=== PATIENT | male | born 1935 | race Caucasian/White ===

== ENCOUNTER → 2018-02-04 | Outpatient (CLI) | payer MEDICARE | LOC: CARD 10:04 | PROVIDERS: ATTEND Internal Medicine Interventional Cardiology | DX: I25.10 Atherosclerotic heart disease of native coronary artery without angina pectoris (principal); J44.9 Chronic obstructive pulmonary disease, unspecified; I10 Essential (primary) hypertension; E11.9 Type 2 diabetes mellitus without complications; G47.33 Obstructive sleep apnea (adult) (pediatric); I49.5 Sick sinus syndrome; Z95.0 Presence of cardiac pacemaker | CPT/HCPCS: 93306 ==

== ENCOUNTER → 2018-02-15 | Outpatient (CLI) | payer MEDICARE ==
[~2018-02-15] MED LIST: RT-ALBUTEROL SULF 2.5 MG/3 ML PRE-MIX VIAL INH ONE; RT-ALBUTEROL SULF 2.5 MG/3 ML PRE-MIX VIAL ONE
== END ==
LOC: EDUNIT# 02-08 16:45 → RT 14:03
PROVIDERS: ATTEND Internal Medicine Interventional Cardiology
DX: R06.02 Shortness of breath (principal)
CPT/HCPCS: 94060; 94726; 94729

== ENCOUNTER → 2018-04-28 | Outpatient (CLI) | payer MEDICARE ==
--- NOTE | 2018-04-28 14:47 | Diagnostic Imaging Report ---
PROCEDURE: CT chest without contrast. TECHNIQUE: Multiple contiguous axial images were obtained through the chest without the use of intravenous contrast. INDICATION: Oxygen dependency x1 month. Shortness of air for six months. COMPARISON: None. FINDINGS: There is no significant mediastinal, axillary and/or hilar lymphadenopathy. Heart size is normal. There is presence of dense areas of coronary artery calcification. Left-sided dual-chamber pacemaker is present. No significant pericardial effusion. Small hiatal hernia. The lung wilkerson are clear of infiltrate. 6 mm nodule posterolaterally in the right upper lobe is present. Margins do appear to be slightly irregular with suggestion of spiculation. Minimal linear density to slightly thickened area of the pleura posteriorly and laterally. No significant effusion. Cholecystectomy clips. Dense calcification of visualized portions of the proximal abdominal aorta. There is rather diffusely dense heterogeneous appearance about the visualized osseous structures. This is most noticeable throughout the vertebral bodies. Scattered areas of Schmorl's nodes deformities are present. There is more focal irregularity at the L1-L2 disc space and adjacent endplates. IMPRESSION: 1. Small nodule in the right upper lobe. While this is too small to definitively characterize, some features do raise concern for potential for primary lung neoplasm. 2. Diffuse increased density throughout the visualized osseous structures. This could be owing to chronic pulmonary disease. Blastic sclerotic metastasis would be difficult to exclude. Additionally, there is slightly more focal destructive change about the L1-L2 level, could be posttraumatic and chronic in nature. While considered less likely, this can also be seen with surgical changes as discitis/osteomyelitis. Dictated by: Dictated on workstation # [id number]
== END ==
LOC: RAD 11:37
PROVIDERS: ATTEND Nurse Practitioner Family
DX: J98.4 Other disorders of lung (principal); J44.9 Chronic obstructive pulmonary disease, unspecified; R91.1 Solitary pulmonary nodule; Z95.0 Presence of cardiac pacemaker
CPT/HCPCS: 71250

== ENCOUNTER 2018-04-29 20:00 | Outpatient (CLI) | payer MEDICARE | END 2018-04-30 06:09 | disposition home or self-care (01) | LOC: SLEEP 20:00 | PROVIDERS: ATTEND Nurse Practitioner Family | DX: G47.33 Obstructive sleep apnea (adult) (pediatric) (principal) | CPT/HCPCS: 95811 ==

== ENCOUNTER 2018-07-23 21:00 | Outpatient (CLI) | payer MEDICARE | END 2018-07-24 07:09 | disposition home or self-care (01) | LOC: SLEEP 21:00 | PROVIDERS: ATTEND Internal Medicine Critical Care Medicine | DX: G47.33 Obstructive sleep apnea (adult) (pediatric) (principal); G47.10 Hypersomnia, unspecified | CPT/HCPCS: 95811 ==

== ENCOUNTER → 2018-09-16 | Outpatient (CLI) | payer MEDICARE ==
[~2018-09-16] MED LIST changes: +CATHETER FLUSH 10 ML SYR IV PRN; +REGADENOSON 0.4 MG/5 ML SYR (LEXISCAN) IV ONE; -RT-ALBUTEROL SULF 2.5 MG/3 ML PRE-MIX VIAL INH ONE; -RT-ALBUTEROL SULF 2.5 MG/3 ML PRE-MIX VIAL ONE
[2018-09-16 09:01] VITALS: BP 160/68
[2018-09-16 09:13] VITALS: BP 142/61
== END ==
LOC: CARD 07:43
PROVIDERS: ATTEND Internal Medicine Interventional Cardiology
DX: I25.10 Atherosclerotic heart disease of native coronary artery without angina pectoris (principal); R06.00 Dyspnea, unspecified; R53.83 Other fatigue; I49.5 Sick sinus syndrome; J44.9 Chronic obstructive pulmonary disease, unspecified; E11.9 Type 2 diabetes mellitus without complications; I77.9 Disorder of arteries and arterioles, unspecified; I10 Essential (primary) hypertension; Z95.0 Presence of cardiac pacemaker; I07.1 Rheumatic tricuspid insufficiency
CPT/HCPCS: 78452; 93017; 93306

== ENCOUNTER 2018-09-30 10:48 | Day surgery (SDC) | payer MEDICARE ==
[2018-09-30] VITALS (10 sets, daily range): BP systolic 120–181; BP diastolic 63–77
[~2018-09-30] VITALS: Ht 182.9 cm; Wt 90.7 kg
--- OUTSIDE RECORDS SUMMARY | 2018-09-30 10:51 | XMS REPORT | CCD ---
Author Author HILARY PADILLA Organization Unknown Address [address] [place], [place] [address] Care Team Providers Care Drain Tile Machine Operator Name Role Phone HANDSHY ERTONY MD Attphys HANDSHY ER, TONY CASTILLO Prisurg Vital Signs Unknown or Not Available. Allergies Allergy Code Allergy Type Reaction Status MORPHINE 7052 Drug allergy HALLUCINATIONS Active Procedures Procedure Code Procedure Type Date CT HEAD W/O CONTRAST 407718255 SNOMED CT 09/02/2015 CT MAXILLOFACIAL W/O CONTRAST 004522291 SNOMED CT 2015 COMPREHENSIVE METABOLIC PANEL 390218501 SNOMED CT 2015 CBC W/ AUTO DIFF (RFLX MAN DIFF IF IND) 0869434 SNOMED CT 09/02/2015 ^CBC W/AUTO DIFF 2080387 SNOMED CT 09/02/2015 History of Immunizations Unknown or Not Available. Problems Problem Code Start Date Resolved Date Status Primary osteoarthritis of left knee 034095121 Active Post op pain 572873747 02/07/2015 Active Status post knee replacement [id number] 02/07/2015 Active Results COMPREHENSIVE METABOLIC PANEL - Collect Date/Time: 09/02/2015 10:45 Test Name Code Test Result Test Units Test Ref Range GLUCOSE 2345-7 124 MG/DL L=70 H=100 SODIUM 2951-2 135 MEQ/L L=135 H=148 POTASSIUM 2823-3 4.5 MEQ/L L=3.5 H=5.3 CHLORIDE 2075-0 101 MEQ/L L=96 H=110 CO2 2028-9 27 MEQ/L L=22 H=29 BUN 3094-0 22 MG/DL L=8 H=22 CREATININE 2160-0 1.0 MG/DL L=0.6 H=1.6 SGOT/AST 1920-8 24 IU/L L=10 H=40 SGPT/ALT 1742-6 25 IU/L L=8 H=54 ALK PHOS 6768-6 82 IU/L L=35 H=115 TOTAL PROTEIN 2885-2 6.5 G/DL L=5.5 H=8.5 ALBUMIN 1751-7 4.1 G/DL L=3.1 H=5.4 TOTAL BILI 1975-2 0.6 MG/DL L=0.0 H=1.5 CALCIUM 03167-1 9.6 MG/DL L=8.2 H=10.6 AGE 80 yrs GFR NonAA 72 GFR AA 87 eGFR >60 N/A eGFR AA* >60 N/A CBC W/ AUTO DIFF (RFLX MAN DIFF IF IND) - Collect Date/Time: 09/02/2015 10:45 Test Name Code Test Result Test Units Test Ref Range WBC 46361-6 6.6 TH/CMM L=4.5 H=10.8 RBC 789-8 4.70 ML/CMM L=4.70 H=6.10 HGB 718-7 14.2 G/DL L=14.0 H=18.0 HCT 4544-3 42.7 % L=42.0 H=52.0 MCV 91 FL L=81 H=99 MCH 30.2 PG L=27.0 H=33.0 MCHC 33.3 G/DL L=31.0 H=36.0 RDW SD 46 FL L=36 H=50 RDW CV 13.9 % L=0.0 H=14.8 MPV 9.4 FL L=9.3 H=12.5 PLT 777-3 186 TH/CMM L=130 H=440 NRBC# 0.00 TH/CMM L=0.00 H=0.00 NRBC% 0.0 /100WBC L=0.0 H=2.0 %NEUT 68.2 % %LYMP 17.9 % %MONO 10.7 % %EOS 2.9 % %BASO 0.3 % #NEUT 4.52 TH/CMM L=2.10 H=8.20 #LYMP 1.19 TH/CMM L=0.90 H=5.20 #MONO 0.71 TH/CMM L=0.16 H=1.00 #EOS 0.19 TH/CMM L=0.00 H=0.80 #BASO 0.02 TH/CMM L=0.00 H=0.20 MANUAL DIFF NOT IND N/A PT/PTT - Collect Date/Time: 09/02/2015 10:45 Test Name Code Test Result Test Units Test Ref Range PROTIME 25118-0 11.0 SEC L=9.9 H=11.9 INR 1.0 PTT 3173-2 27.0 SEC L=22.2 H=37.2 Active Medications Medication Code Dose Units Frequency Route Modification Start Date/Time Augmentin 500MG-125MG Oral Tablet 44769732026 1 TABLET EVERY 12 HOURS BY MOUTH 02/12/2015 15:10 Prescription Detail 1 TABLET BY MOUTH EVERY 12 HOURS x 7 days Acetaminophen-HYDROcodone Bitartrate 10MG-325MG Oral Tablet 296428 1/2 - 1 TABLET NEEDED EVERY 4 HR BY MOUTH FOR PAIN 02/08/2015 18:41 Prescription Detail 1/2 - 1 TABLET BY MOUTH NEEDED EVERY 4 HR FOR PAIN Cozaar 50MG Oral Tablet 131889 50 MILLIGRAMS DAILY BY MOUTH 02/08/2015 18:41 Prescription Detail 50 MILLIGRAMS BY MOUTH DAILY Thera-M Enhanced 90MG-0.03MG-0.15MG-4 Oral Tablet 271442 1 TABLET DAILY BY MOUTH 02/08/2015 18:41 Prescription Detail 1 TABLET BY MOUTH DAILY Aspirin 325MG Oral Tablet 159713 325 MILLIGRAMS TWO TIMES A DAY ORAL 02/08/2015 18:40 Prescription Detail 325 MILLIGRAMS ORAL TWO TIMES A DAY Atorvastatin Calcium 80MG Oral Tablet 972925 80 MILLIGRAMS DAILY ORAL 02/08/2015 18:40 Prescription Detail 80 MILLIGRAMS ORAL DAILY Clopidogrel 75MG Oral Tablet 577341 75 MILLIGRAMS DAILY ORAL 02/08/2015 18:40 Prescription Detail 75 MILLIGRAMS ORAL DAILY Furosemide 40MG Oral Tablet 865679 40 MILLIGRAMS NEEDED ORAL 02/08/2015 18:40 Prescription Detail 40 MILLIGRAMS ORAL NEEDED HumaLOG 100U/1ML Subcutaneous Suspension 7747520 10 UNIT THREE TIMES A DAY SUBCUTANEOUS 02/08/2015 18:40 Prescription Detail 10 UNIT SUBCUTANEOUS THREE TIMES A DAY Lantus 100U/1ML Subcutaneous Solution 715840 30 UNIT BEFORE BEDTIME SUBCUTANEOUS 02/08/2015 18:40 Prescription Detail 30 UNIT SUBCUTANEOUS BEFORE BEDTIME Levothyroxine 50MCG Oral Tablet 673795 1 TABLET DAILY BY MOUTH 02/08/2015 18:40 Prescription Detail 1 TABLET BY MOUTH DAILY Metoprolol Tartrate 25MG Oral Tablet 604264 25 MILLIGRAMS TWO TIMES A DAY ORAL 02/08/2015 18:40 Prescription Detail 25 MILLIGRAMS ORAL TWO TIMES A DAY NIFEdipine 60MG Oral Tablet, Extended Release 062880 60 MILLIGRAMS DAILY ORAL 02/08/2015 18:40 Prescription Detail 60 MILLIGRAMS ORAL DAILY Potassium Chloride 20MEQ Oral Tablet, Extended Release 669648 20 MEQ NEEDED ORAL 02/08/2015 18:40 Prescription Detail 20 MEQ ORAL NEEDED Tamsulosin HCl 0.4MG Oral Capsule 467787 0.4 MILLIGRAMS DAILY ORAL 02/08/2015 18:40 Prescription Detail 0.4 MILLIGRAMS ORAL DAILY Medications Administered During Visit Unknown or Not Available. Encounters Encounter Diagnosis Diagnosis Code Start Date Fracture of nasal bones, initial encounter for closed fracture [id number] 09/02/2015 Social History Smoking Status Code Start Date End Date Never smoker [id number] Patient Decision Aids Unknown or Not Available. Discharge Instructions You were admitted to [facility] on 09/02/2015 10:09 with a principal diagnosis of Fracture of nasal bones, initial encounter for closed fracture You had the following tests done: CBC W/ AUTO DIFF (RFLX MAN DIFF IF IND) COMPREHENSIVE METABOLIC PANEL PT/PTT You were discharged from [facility] on 09/02/2015 12:48 Should you have any questions prior to discharge, please contact a member of your healthcare team. If you have left the hospital and have any questions, please contact your primary care physician. Chief Complaint and Reason For Visit Chief Complaint Date of Onset NOSE BLOOD Function Status Unknown or Not Available. Plan of Care Unknown or Not Available. Referral/Transition of Care Unknown or Not Available.
--- OUTSIDE RECORDS SUMMARY | 2018-09-30 10:51 | XMS REPORT ---
Author Author [facility] Medical Staff Organization [facility] Address [address] [place], [place] [address] Phone [phone] Summary purpose CCDA Sent to [facility] Chief Complaint and Reason for Visit No authorized Reason for Visit (Admitting Diagnosis) is available for this visit. Problem list No authorized problems tracked for continuity of care are available for this visit. Encounters No authorized problems tracked for encounter diagnoses are available for this visit. Medications No medications recorded for this patient visit Allergies, adverse reactions, alerts No allergy information is available for this patient. Immunizations No immunizations recorded for this patient visit Relevant diagnostic tests and/or laboratory data RESULTS Chemistry Group [id number]:15:00 Result Normal Range Units Hemoglobin A1C H 7.1 < 6.0 % PSA Diagnostic H 5.4 <=4.0 ng/ml History of procedures Procedure Code Code Type Description Date Performed Performing Physician 78928 CPT-4 ASSAY OF PSA, TOTAL 06-19-2016 ZOHAIB PHILLIPS 89150 CPT-4 GLYCOSYLATED HEMOGLOBIN TEST 06-19-2016 ZOHAIB PHILLIPS 83961 CPT-4 ROUTINE VENIPUNCTURE 06-19-2016 ZOHAIB PHILLIPS Functional status No functional or cognitive status observations are available for this visit. Vital signs No authorized vital signs are available for this visit. Social history No Social History or smoking status observations were recorded for this visit. ( Unknown if ever smoked.) Treatment Plan No treatment plan text is available for this visit. Hospital discharge instructions No discharge instruction text is available for this visit.
--- OUTSIDE RECORDS SUMMARY | 2018-09-30 10:52 | XMS REPORT ---
Author Author [facility] Medical Staff Organization [facility] Address [address] [place], [place] [address] Phone [phone] Care Team Providers Care Yarn Worker Name Role Phone ZOHAIB WOOD PP [phone] Summary purpose CCDA Sent to [facility] Chief Complaint and Reason for Visit [...] visit Relevant diagnostic tests and/or laboratory data No authorized results are available for this patient visit History of procedures Procedure Code Code Type Description Date Performed Performing Physician 09362 CPT-4 COMPREHEN METABOLIC PANEL 01-07-2017 ZOHAIB PHILLIPS 94368 CPT-4 URINALYSIS, AUTO W/SCOPE 01-07-2017 ZOHAIB PHILLIPS 93059 CPT-4 LIPID PANEL 01-07-2017 ZOHAIB PHILLIPS 92294 CPT-4 COMPLETE CBC W/AUTO DIFF WBC 01-07-2017 ZOHAIB PHILLIPS Functional status No functional or [...]
--- OUTSIDE RECORDS SUMMARY | 2018-09-30 10:52 | XMS REPORT ---
Author Gage Martinez [facility] Address [address] [place], [place] [address] Care Team Providers Care Spray Drier Operator Helper Name Role Phone Gage Gonsalves PCP Allergies and Adverse Reactions Name Reaction Notes morphine Plan of Treatment Not available. Medications Active Name Start Date Estimated Completion Date SIG Comments metoprolol tartrate 25 mg oral tablet take 1 tablet (25 mg) by oral route 2 times per day levothyroxine 50 mcg oral tablet take 1 tablet (50 mcg) by oral route once daily atorvastatin 80 mg oral tablet take 1 tablet (80 mg) by oral route once daily tamsulosin 0.4 mg oral capsule,extended release 24hr 03/25/2016 take 1 capsule (0.4 mg) by oral route once daily 1/2 hour following the same meal each day Plavix 75 mg oral tablet take 1 tablet (75 mg) by oral route once daily nifedipine 60 mg oral tablet extended release take 1 tablet (60 mg) by oral route once daily Cozaar 50 mg oral tablet take 1 tablet (50 mg) by oral route once daily Humalog 100 unit/mL subcutaneous solution 10 units TID Lantus 100 unit/mL subcutaneous solution 20 units at bedtime tamsulosin 0.4 mg oral capsule 06/23/2018 06/18/2019 TAKE 1 CAPSULE BY MOUTH ONCE DAILY 1/2 HOUR AFTER THE SAME MEAL EACH DAY` for 90 days ranitidine HCl 300 mg oral tablet 08/20/2018 TAKE 1 TABLET BY MOUTH DAILY AT BEDTIME potassium chloride 10 mEq oral tablet extended release take 1 tablet ( 10 meq) by oral route 2 times per day with food furosemide 40 mg oral tablet take 1 tablet (40 mg) by oral route once daily doxycycline hyclate 100 mg oral tablet take 1 tablet (100 mg) by oral route 2 times per day aspirin 81 mg oral tablet,delayed release (DR/EC) take 1 tablet (81 mg) by oral route once daily Name Start Date Expiration Date SIG Comments amlodipine 5 mg oral tablet losartan-hydrochlorothiazide 100-12.5 mg oral tablet take 1 tablet by oral route once daily aspirin 325 mg oral tablet,delayed release (DR/EC) take 1 tablet (325 mg ) by oral route once daily Humalog subcutaneous Lantus 100 unit/mL subcutaneous solution inject by subcutaneous route as per insulin protocol nystatin-triamcinolone 100,000-0.1 unit/g-% topical cream 07/30/20182018 apply to the affected area(s) by topical route 2 times per day in the morning and evening. Wash area and dry very well prior to application. 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 Family history of prostate cancer Active 01/30/2017 Dyspepsia Active 06/15/2017 Change in bowel habit Active 06/15/2017 Diarrhea Active 06/15/2017 Vital Signs Date Time BP-Sys(mm[Hg] BP-Jodie(mm[Hg]) HR(bpm) RR(rpm) Temp WT HT HC BMI BSA BMI Percentile O2 Sat(%) 09/15/2018 11:41:00 AM 142 mmHg 59 mmHg 81 bpm 20 rpm 97.2 F 202 lbs 72 in 27.3958 kg/m 2.1575 m 06/23/2018 10:10:00 AM 138 mmHg 54 mmHg 65 bpm 14 rpm 98.1 F 201.375 lbs 72 in 27.31 kg/m2 2.15 m2 97 % 12/18/2017 3:00:00 PM 139 mmHg 55 mmHg 77 bpm 16 rpm 98.6 F 195 lbs 72 in 26.45 kg/m2 2.12 m2 96 % 06/10/2017 3:05:00 PM 140 mmHg 54 mmHg 78 bpm 20 rpm 97.8 F 197 lbs 72 in 26.7177 kg/m 2.1306 m 06/02/2017 10:30:00 AM 142 mmHg 62 mmHg 67 bpm 18 rpm 198 lbs 72 in 26.85 kg/m2 2.14 m2 98 % 01/27/2017 8:34:00 AM 110 mmHg 66 mmHg 63 bpm 16 rpm 96.3 F 200 lbs 72 in 27.1246 kg/m 2.1467 m 97 % 06/25/2016 8:25:00 AM 130 mmHg 56 mmHg 61 bpm 18 rpm 98.3 F 200 lbs 72 in 27.12 kg/m2 2.15 m2 97 % 12/28/2015 11:03:00 AM 128 mmHg 60 mmHg 72 bpm 18 rpm 98.9 F 195 lbs 72 in 26.4465 kg/m 2.1197 m 96 % 06/27/2015 10:42:00 AM 194 lbs 72 in 26.31 kg/m2 2.11 m2 03/06/2015 11:41:00 AM 200 lbs 72 in 27.1246 kg/m 2.1467 m 09/06/2014 10:17:00 AM 200 lbs 72 in 27.12 kg/m2 2.15 m2 01/23/2014 1:22:00 PM 200 lbs 72 in 27.1246 kg/m 2.1467 m Social History Name Description Comments Tobacco Never smoker Alcohol Never History of Procedures Date Ordered Description Order Status 12/28/2015 12:00 AM ASSAY OF PSA TOTAL Reviewed 12/28/2015 2:35 PM URINALYSIS AUTO W/O SCOPE Reviewed 06/25/2016 10:43 AM URINALYSIS AUTO W/O SCOPE Reviewed 01/19/2017 12:00 AM ASSAY OF PSA TOTAL Reviewed 01/27/2017 10:27 AM URINALYSIS AUTO W/O SCOPE Reviewed 01/30/2017 3:53 PM URINALYSIS AUTO W/O SCOPE Reviewed 06/02/2017 5:14 PM URINALYSIS AUTO W/O SCOPE Reviewed 06/23/2018 12:00 AM URINALYSIS AUTO W/SCOPE Reviewed 01/19/2014 12:00 AM ASSAY OF PSA TOTAL Reviewed 01/23/2014 2:00 PM URINALYSIS AUTO W/O SCOPE Reviewed 01/23/2014 12:00 AM ASSAY OF PSA TOTAL Reviewed 09/06/2014 3:23 PM URINALYSIS AUTO W/O SCOPE Reviewed 03/06/2015 4:25 PM URINALYSIS AUTO W/O SCOPE Reviewed Results Summary Date and Description Results 01/23/2014 2:00 PM pH Ur-LsCnc 6.0 Sp Gr Ur Qn 1015 01/23/2014 2:05 PM PSA TOTAL 4.330 ng/mL 09/06/2014 3:23 PM Bilirub Ur Ql Strip -VE Glucose Ur-sCnc 1+ Hgb Ur Ql Strip - VE Ketones Ur Ql Strip -VE Nitrite Ur Ql Strip -VE pH Ur-LsCnc 6.0 Prot Ur Ql Strip -VE Sp Gr Ur Qn 1015 Urobilinogen Ur-mCnc -VE WBC Est Ur Ql Strip TRACE 03/06/2015 4:25 PM Clarity Ur CLEAR Color Ur --- Glucose Ur-sCnc -VE Bilirub Ur Ql Strip -VE Ketones Ur Ql Strip -VE Sp Gr Ur Qn 1015 Hgb Ur Ql Strip -VE pH Ur-LsCnc 6.0 Prot Ur Ql Strip -VE Urobilinogen Ur-mCnc -VE Nitrite Ur Ql Strip - VE WBC Est Ur Ql Strip -VE 12/28/2015 2:35 PM Clarity Ur CLEAR Color Ur ------- Glucose Ur-sCnc -VE Bilirub Ur Ql Strip -VE Ketones Ur Ql Strip -VE Sp Gr Ur Qn 1015 Hgb Ur Ql Strip -VE pH Ur-LsCnc 6.0 Prot Ur Ql Strip -VE Urobilinogen Ur-mCnc -VE Nitrite Ur Ql Strip -VE WBC Est Ur Ql Strip -VE 06/25/2016 10:43 AM Clarity Ur clear Color Ur ------- Glucose Ur-sCnc -VE Bilirub Ur Ql Strip -VE Ketones Ur Ql Strip -VE Sp Gr Ur Qn 1015 Hgb Ur Ql Strip -VE pH Ur-LsCnc 5.5 Prot Ur Ql Strip -VE Urobilinogen Ur-mCnc -VE Nitrite Ur Ql Strip -VE WBC Est Ur Ql Strip -VE 01/27/2017 9:15 AM PSA TOTAL 5.990 ng/mL 01/27/2017 10:27 AM Clarity Ur CLEAR Color Ur ---- Glucose Ur-sCnc -VE Bilirub Ur Ql Strip -VE Ketones Ur Ql Strip -VE Sp Gr Ur Qn 1020 Hgb Ur Ql Strip -VE pH Ur-LsCnc 6.0 Prot Ur Ql Strip -VE Urobilinogen Ur-mCnc -VE Nitrite Ur Ql Strip - VE WBC Est Ur Ql Strip -VE 01/30/2017 3:53 PM Clarity Ur CLEAR Color Ur -VE Glucose Ur-sCnc -VE Bilirub Ur Ql Strip -VE Ketones Ur Ql Strip -VE Sp Gr Ur Qn 1015 Hgb Ur Ql Strip -VE pH Ur-LsCnc 5.5 Prot Ur Ql Strip -VE Urobilinogen Ur-mCnc -VE Nitrite Ur Ql Strip - VE WBC Est Ur Ql Strip -VE 06/02/2017 5:14 PM Clarity Ur CLEAR Color Ur ----- Glucose Ur-sCnc 1+ Bilirub Ur Ql Strip -VE Ketones Ur Ql Strip -VE Sp Gr Ur Qn 1010 Hgb Ur Ql Strip -VE pH Ur-LsCnc 6.0 Prot Ur Ql Strip -VE Urobilinogen Ur-mCnc -VE Nitrite Ur Ql Strip - VE WBC Est Ur Ql Strip -VE 06/23/2018 11:28 AM COLOR YELLOW APPEARANCE CLEAR SPEC GRAV 1.010 pH 5.5 PROTEIN NEGATIVE GLUCOSE 250 KETONE NEGATIVE BILIRUBIN NEGATIVE BLOOD NEGATIVE NITRITE NEGATIVE LEUK SCREEN NEGATIVE WBC/HPF RARE RBC/HPF NEGATIVE CASTS/LPF NEGATIVE CRYSTALS NEGATIVE MUCOUS THRDS NEGATIVE BACTERIA FEW EPITH CELLS NEGATIVE TRICHOMONAS NEGATIVE YEAST NEGATIVE CULT SET UP? NO History Of Immunizations Not available. 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 Family history of prostate cancer 01/30/2017 Hypertension Hypothyroidism Diabetes mellitus age 33 type 1 Hyperlipidemia Dyspepsia 06/15/2017 Change in bowel habit 06/15/2017 Diarrhea 06/15/2017 Elevated PSA Jan 19 2014 8:51AM History of prostate cancer Jan 19 2014 8:51AM Elevated prostate specific antigen (PSA) Jan 23 2014 1:44PM Prostate Check Jan 23 2014 1:44PM BPH with urinary obstruction( Retention) Jan 23 2014 1:44PM Nocturia Jan 23 2014 1:44PM Moderate Benign Hypertrophy of Prostate (BPH) Sep 06 2014 10:24AM Abnormal prostate specific antigen Sep 06 2014 10:24AM Elevated prostate specific antigen (PSA) Mar 06 2015 11:42AM Benign prostate hyperplasia Mar 06 2015 11:42AM Abnormal PSA Jun 27 2015 10:43AM Benign non-nodular prostatic hyperplasia without lower urinary tract symptoms Jun 27 2015 10:43AM Resolved Urinary retention Jun 27 2015 10:43AM Abnormal prostate specific antigen Dec 28 2015 10:42AM BPH (benign prostatic hypertrophy) with urinary obstruction Dec 28 2015 10: 42AM Benign prostate hyperplasia Dec 28 2015 10:42AM Abnormal PSA Dec 28 2015 11:06AM Adenofibromatous hypertrophy of prostate Dec 28 2015 11:06AM Resolved Retention of urine Dec 28 2015 11:06AM Drug therapy Dec 28 2015 11:06AM Abnormal PSA Jun 25 2016 8:27AM Adenofibromatous hypertrophy of prostate Jun 25 2016 8:27AM Drug therapy Jan 19 2017 8:11AM BPH (benign prostatic hypertrophy) Jan 19 2017 8:11AM Elevated PSA Jan 19 2017 8:11AM Elevated prostate specific antigen (PSA) Jan 27 2017 8:38AM Adenofibromatous hypertrophy of prostate Jan 27 2017 8:38AM Resolved Retention of urine Jan 27 2017 8:38AM Family history of prostate carcinoma Jan 27 2017 8:38AM Adenofibromatous hypertrophy of prostate Jan 30 2017 3:51PM Elevated prostate specific antigen (PSA) Jan 30 2017 3:51PM Family history of prostate cancer Jan 30 2017 3:51PM Abnormal prostate specific antigen test Jun 02 2017 10:33AM Adenofibromatous hypertrophy of prostate Jun 02 2017 10:33AM Dyspepsia Jun 10 2017 3:18PM Change in bowel habit Jun 10 2017 3:18PM Diarrhea Jun 10 2017 3:18PM Abnormal PSA Dec 18 2017 3:02PM BPH (benign prostatic hyperplasia) Dec 18 2017 3:02PM Tinea cruris Jun 23 2018 10:12AM BPH (benign prostatic hyperplasia) Jun 23 2018 10:12AM Urinary Frequency Jun 23 2018 10:12AM Dyspepsia Sep 15 2018 11:43AM Payers Insurance Name Company Name Plan Name Plan Number Policy Number Policy Group Number Start Date Medicare Part B [employer] [place] [id number] [id number]/A History of Encounters Visit Date Visit Type Provider 09/15/2018 Office visit Gage Gonsalves DO 06/23/2018 Office visit Adan Garcia MD 12/18/2017 Office visit Adan Garcia MD 06/22/2017 Surgery Gage Gonsalves DO 06/10/2017 Office visit Gage Gonsalves DO 06/02/2017 Office visit Soniya Awad MD 01/27/2017 Office visit Soniya Awad MD 06/25/2016 Office visit Soniya Awad MD 12/28/2015 Office visit Soniya Awad MD 06/27/2015 Office visit V Taty Awad MD 03/06/2015 Office visit Soniya Awad MD 02/07/2015 [facility] Gualberto Munoz MD 01/22/2015 [facility] Hazel Russell MD 09/06/2014 Office visit V Taty Awad MD 01/23/2014 Office visit Soniya Awad MD 05/01/2011 [facility] Heather Olvera MD 04/27/2011 [facility] Hazel Russell MD 04/27/2011 [facility] Heather Olvera MD
--- OUTSIDE RECORDS SUMMARY | 2018-09-30 10:52 | XMS REPORT ---
Author Author [facility] Medical Staff Organization [facility] Address [address] [place], [place] [address] Phone [phone] Care Team Providers Care Order Entry Name Role Phone ZOHAIB WOOD PP [phone] Summary purpose CCDA Sent to [facility] Chief Complaint and Reason for Visit [...] Code Type Description Date Performed Performing Physician 74185 CPT-4 IADNA-DNA/RNA PROBE TQ -05-21-2017 ZOHAIB PHILLIPS 02836 CPT-4 COMPREHEN METABOLIC PANEL 05-21-2017 ZOHAIB PHILLIPS 58260 CPT-4 ASSAY THYROID STIM HORMONE 05-21-2017 ZOHAIB PHILLIPS 37100 CPT-4 GLYCOSYLATED HEMOGLOBIN TEST 05-21-2017 ZOHAIB PHILLIPS 51147 CPT-4 MICROALBUMIN, SEMIQUANT 05-21-2017 ZOHAIB PHILLIPS 23233 CPT-4 ASSAY OF URINE CREATININE 05-21-2017 ZOHAIB PHILLIPS 20081 CPT-4 URINALYSIS, AUTO W/SCOPE 05-21-2017 ZOHAIB PHILLIPS G0103 CPT-4 PSA SCREENING 05-21-2017 ZOHAIB PHILLIPS 39113 CPT-4 COMPLETE CBC W/AUTO DIFF WBC 05-21-2017 ZOHAIB PHILLIPS Functional status No functional or [...]
--- OUTSIDE RECORDS SUMMARY | 2018-09-30 10:52 | XMS REPORT ---
Author Author Adan Garcia [facility] Address [address] [place], [place] [address] Care Team Providers Care Flower Shop Laborer/Designer Name Role Phone Adan Garcia PCP Allergies and Adverse Reactions Name Reaction [...] (80 mg) by oral route once daily aspirin 325 mg oral tablet,delayed release (DR/EC) take 1 tablet (325 mg ) by oral route once daily tamsulosin 0.4 [...] 1 TABLET BY MOUTH DAILY AT BEDTIME Name Start Date Expiration Date SIG Comments amlodipine 5 mg oral tablet losartan-hydrochlorothiazide 100-12.5 mg oral tablet take 1 tablet by oral route once daily Humalog subcutaneous [...] hyperplasia Active 03/06/2015 Urinary retention Active 06/27/2015 Abnormal PSA Active 06/27/2015 Drug therapy Active 12/28/2015 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 Family history of prostate cancer Active 01/30/2017 Dyspepsia Active 06/15/2017 Change in bowel habit Active 06/15/2017 Diarrhea Active 06/15/2017 Vital Signs Date Time BP-Sys(mm[Hg] BP-Jodie(mm[Hg]) HR(bpm) RR(rpm) Temp WT HT HC BMI BSA BMI Percentile O2 Sat(%) 06/23/2018 10:10:00 AM 138 mmHg 54 mmHg 65 bpm 14 rpm 98.1 F 201.375 lbs 72 in 27.3111 kg/m 2.1541 m 97 % 12/18/2017 3:00:00 PM 139 mmHg [...] Benign prostate hyperplasia 03/06/2015 Urinary retention 06/27/2015 Abnormal PSA 06/27/2015 Drug therapy 12/28/2015 Adenofibromatous hypertrophy of prostate 12/28/2015 Family history [...] 10:12AM Urinary Frequency Jun 23 2018 10:12AM Payers Insurance Name Company Name Plan Name Plan Number Policy Number Policy Group Number Start Date Medicare Part B Medicare [facility] [id number] N/A [id number] N/A History of Encounters Visit Date Visit Type Provider 06/23/2018 Office visit Adan Garcia MD 12/18/2017 Office visit Adan Garcia MD 06/22/2017 Surgery Gage Gonsalves DO 06/10/2017 Office visit Gage Gonsalves DO 06/02/2017 Office visit V Taty Awad MD 01/27/2017 Office visit V Taty Awad MD 06/25/2016 Office visit V Taty Awad MD 12/28/2015 Office visit V Taty Awad MD 06/27/2015 Office visit V Taty Awad MD 03/06/2015 Office visit V Taty Awad MD 02/07/2015 [facility] Gualberto Munoz MD 01/22/2015 [facility] Hazel Russell MD 09/06/2014 Office visit V Taty Awad MD 01/23/2014 Office visit V Taty Awad MD 05/01/2011 [facility] Heather Olvera MD 04/27/2011 [facility] Hazel Russell MD 04/27/2011 [facility] Heather Olvera MD
--- OUTSIDE RECORDS SUMMARY | 2018-09-30 10:53 | XMS REPORT ---
Author Author Adan Garcia [facility] Address [address] [place], [place] [id number] Care Team Providers Care Concrete Sculptor Name Role Phone Adan Garcia PCP Allergies [...] SAME MEAL EACH DAY` for 90 days Name Start Date Expiration Date SIG Comments amlodipine 5 mg oral tablet losartan-hydrochlorothiazide 100-12.5 mg oral tablet take 1 tablet by oral route once daily Humalog subcutaneous Lantus 100 unit/mL subcutaneous solution inject by subcutaneous route as per insulin protocol nystatin-triamcinolone 100,000-0.1 unit/g-% topical cream 06/23/20182017 apply to the affected area(s) by topical [...] Date Medicare Part B Medicare Of [place] [id number] N/A [facility] [id number] N/A History of Encounters Visit Date Visit Type Provider 06/23/2018 Office visit Adan Garcia MD 12/18/2017 Office visit Adan Garcia MD 06/22/2017 Surgery Gage Gonsalves DO 06/10/2017 Office visit Gage Gonsalves DO 06/02/2017 Office visit Soniya Awad MD 01/27/2017 Office visit Soniya Awad MD 06/25/2016 Office visit Soniya Awad MD 12/28/2015 Office visit Soniya Awad MD 06/27/2015 Office visit Soniya Awad MD 03/06/2015 Office visit Soniya Awad MD 02/07/2015 [facility] Gualberto Munoz MD 01/22/2015 [facility] Hazel Russell MD 09/06/2014 Office visit Soniya Awad MD 01/23/2014 Office visit V Taty Awad MD 05/01/2011 [facility] Heather Olvera MD 04/27/2011 [facility] Hazel Russell MD 04/27/2011 [facility] Heather Olvera MD
--- OUTSIDE RECORDS SUMMARY | 2018-09-30 10:53 | XMS REPORT ---
Author Author Soniya Awad Organization [facility] Address [address] [place], [place] [id number] Care Team Providers Care Information Technology Auditor Name Role Phone Soniya Awad PCP Unavailable Allergies and Adverse Reactions Name Reaction Notes morphine Plan of Treatment Not available. Medications Active Name Start Date Estimated Completion Date SIG Comments amlodipine 5 mg oral tablet metoprolol tartrate 25 mg oral tablet take 1 tablet (25 mg) by oral route 2 times per day losartan-hydrochlorothiazide 100-12.5 mg oral tablet take 1 tablet by oral route once daily levothyroxine 50 mcg oral tablet take 1 tablet (50 mcg) by oral route once daily atorvastatin 80 mg oral tablet take 1 tablet (80 mg) by oral route once daily aspirin 325 mg oral tablet,delayed release (DR/EC) take 1 tablet (325 mg ) by oral route once daily Humalog subcutaneous Lantus 100 unit/mL subcutaneous solution inject by subcutaneous route as per insulin protocol tamsulosin 0.4 mg oral capsule,extended release 24hr 09/06/2014 take 1 capsule (0.4 mg) by oral route once daily 1/2 hour following the same meal each day Problem List Description Status Onset Elevated prostate specific antigen (PSA) Active 01/23/2014 Prostate Check Active 01/23/2014 BPH with urinary obstruction( Retention) Active 01/23/2014 Nocturia Active 01/23/2014 Benign Hypertrophy of Prostate (BPH) Active 09/06/2014 Abnormal prostate specific antigen Active 09/06/2014 Elevated prostate specific antigen (PSA) Active 03/06/2015 Benign prostate hyperplasia Active 03/06/2015 Urinary retention Active 06/27/2015 Benign enlargement of prostate Active 06/27/2015 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 History of Procedures Date Ordered Description Order Status 01/19/2014 12:00 AM ASSAY OF PSA TOTAL Returned 01/23/2014 2:00 PM URINALYSIS AUTO W/O SCOPE Reviewed 01/23/2014 12:00 AM ASSAY OF PSA TOTAL Returned 09/06/2014 3:23 PM URINALYSIS AUTO W/O SCOPE Reviewed 03/06/2015 4:25 PM URINALYSIS AUTO W/O SCOPE Reviewed Results Summary Data and Description Results 01/23/2014 2:00 PM pH [...] VE WBC Est Ur Ql Strip -VE History Of Immunizations Not available. History of Past Illness Name Date of Onset Comments Elevated prostate specific antigen (PSA) 01/23/2014 Prostate Check 01/23/2014 BPH with urinary obstruction( Retention) 01/23/2014 Nocturia 01/23/2014 Benign Hypertrophy of Prostate (BPH) 09/06/2014 Abnormal prostate specific antigen 09/06/2014 Elevated prostate specific antigen (PSA) 03/06/2015 Benign prostate hyperplasia 03/06/2015 Urinary retention 06/27/2015 Benign enlargement of prostate 06/27/2015 Benign non-nodular prostatic hyperplasia without lower urinary tract symptoms 06/27/2015 Abnormal PSA 06/27/2015 Elevated PSA Jan 19 2014 8:51AM History [...] Resolved Urinary retention Jun 27 2015 10:43AM Payers Insurance Name Company Name Plan Name Plan Number Policy Number Policy Group Number Start Date Medicare Part B Medicare Of [place] [id number] N/[facility] [id number] N/A History of Encounters Visit Date Visit Type Provider 06/27/2015 Office visit Soniya Awad MD 03/06/2015 Office visit Soniya Awad MD 02/07/2015 [facility] Gualberto Munoz MD 01/22/2015 [facility] Haezl Russell MD 09/06/2014 Office visit Soniya Awad MD 01/23/2014 Office visit Soniya Awad MD 05/01/2011 [facility] Heather Olvera MD 04/27/2011 [facility] Hazel Russell MD 04/27/2011 [facility] Heather Olvera MD
--- OUTSIDE RECORDS SUMMARY | 2018-09-30 10:53 | XMS REPORT ---
Author Author Adan Garcia [facility] Address [address] [place], [place] [id number] Care Team Providers Care Director Of Investigations Name Role Phone Adan Garcia PCP Allergies [...] SAME MEAL EACH DAY` for 90 days nystatin-triamcinolone 100,000-0.1 unit/g-% topical cream 07/30/20182018 apply to the affected area(s) by topical route 2 times per day in the morning and evening. Wash area and dry very well prior to application. Name Start Date Expiration Date SIG Comments amlodipine 5 mg oral tablet losartan-hydrochlorothiazide 100-12.5 mg oral tablet take 1 tablet by oral route once daily Humalog subcutaneous Lantus 100 unit/mL subcutaneous solution inject by subcutaneous route as per insulin protocol Problem List Description Status Onset Elevated prostate [...] Date Medicare Part B Medicare Of [place] [id number] N/A [facility] [id number] N/A History of Encounters Visit Date Visit [...] 03/06/2015 Office visit Soniya Awad MD 02/07/2015 [facility] Gualberto Munoz MD 01/22/2015 [facility] Hazel Russell MD 09/06/2014 Office visit Soniya Awad MD 01/23/2014 Office visit V Taty Awad MD 05/01/2011 [facility] Heather Olvera MD 04/27/2011 [facility] Hazel Russell MD 04/27/2011 [facility] Heather Olvera MD
--- OUTSIDE RECORDS SUMMARY | 2018-09-30 10:54 | XMS REPORT ---
Author Author Adan Garcia [facility] Address [address] [place], [place] [phone] Care Team Providers Care Blast Setter Name Role Phone Adan Garcia PCP Allergies [...] unit/mL subcutaneous solution 20 units at bedtime Name Start Date Expiration Date SIG Comments amlodipine 5 mg oral tablet losartan-hydrochlorothiazide 100-12.5 mg oral tablet take 1 tablet by oral route once daily Humalog subcutaneous Lantus 100 unit/mL subcutaneous solution inject by subcutaneous route as per insulin protocol tamsulosin 0.4 mg oral capsule,extended release 24hr 03/27/2017 09/23/2017 TAKE 1 CAPSULE BY MOUTH ONCE DAILY 1/2 HOUR AFTER THE SAME MEAL EACH DAY` Problem List Description Status Onset Elevated prostate [...] HC BMI BSA BMI Percentile O2 Sat(%) 12/18/2017 3:00:00 PM 139 mmHg 55 mmHg 77 bpm 16 rpm 98.6 F 195 lbs 72 in 26.4465 kg/m 2.1197 m 96 % 06/10/2017 3:05:00 PM 140 mmHg 54 mmHg 78 bpm 20 rpm 97.8 F 197 lbs 72 in 26.72 kg/m2 2.13 m2 06/02/2017 10:30:00 AM 142 mmHg 62 mmHg 67 bpm 18 rpm 198 lbs 72 in 26.8534 kg/m 2.136 m 98 % 01/27/2017 8:34:00 AM 110 mmHg 66 mmHg 63 bpm 16 rpm 96.3 F 200 lbs 72 in 27.12 kg/m2 2.15 m2 97 % 06/25/2016 8:25:00 AM 130 mmHg 56 mmHg 61 bpm 18 rpm 98.3 F 200 lbs 72 in 27.1246 kg/m 2.1467 m 97 % 12/28/2015 11:03:00 AM 128 mmHg 60 mmHg 72 bpm 18 rpm 98.9 F 195 lbs 72 in 26.45 kg/m2 2.12 m2 96 % 06/27/2015 10:42:00 AM 194 lbs 72 in 26.3109 kg/m 2.1143 m 03/06/2015 11:41:00 AM 200 lbs 72 in 27.12 kg/m2 2.15 m2 09/06/2014 10:17:00 AM 200 lbs 72 in 27.1246 kg/m 2.1467 m 01/23/2014 1:22:00 PM 200 lbs 72 in 27.1246 kg/m 2.15 m2 Social History Name Description Comments Tobacco Never [...] 5:14 PM URINALYSIS AUTO W/O SCOPE Reviewed 01/19/2014 12:00 AM ASSAY OF PSA [...] (benign prostatic hyperplasia) Dec 18 2017 3:02PM Payers Insurance Name Company Name Plan Name Plan Number Policy Number Policy Group Number Start Date Medicare Part B Medicare Of [place] [id number] N/A [facility] [id number] N/A History of Encounters Visit Date Visit Type Provider 12/18/2017 Office visit Adan Garcia MD 06/22/2017 Surgery Gage Gonsalves DO 06/10/2017 Office visit Gage Gonsalves DO 06/02/2017 Office visit Soniya Awad MD 01/27/2017 Office visit V Taty Awad MD 06/25/2016 Office visit V Taty Awad MD 12/28/2015 Office visit V Taty Awad MD 06/27/2015 Office visit V Taty Awad MD 03/06/2015 Office visit V Taty Awad MD 02/07/2015 [facility] Gualberto Munoz MD 01/22/2015 [facility] Hazel Russell MD 09/06/2014 Office visit V Taty Awad MD 01/23/2014 Office visit V Taty Awad MD 05/01/2011 [facility] Heather Olvera MD 04/27/2011 [facility] Hazel Russell MD 04/27/2011 [facility] Heather Olvera MD
--- OUTSIDE RECORDS SUMMARY | 2018-09-30 10:54 | XMS REPORT ---
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 History [...] urinary tract symptoms 06/27/2015 Abnormal PSA 06/27/2015 Drug therapy 12/28/2015 Retention of urine 12/28/2015 Adenofibromatous hypertrophy of prostate 12/28/2015 Family history of prostate carcinoma 01/27/2017 Family history of prostate cancer 01/30/2017 Abnormal prostate specific antigen test 06/02/2017 Elevated PSA Jan 19 2014 8:51AM History [...] hypertrophy of prostate Jun 02 2017 10:33AM Payers Insurance Name Company Name Plan Name Plan Number Policy Number Policy Group Number Start Date Medicare Part B Medicare Of [place] [id number] N/A BCBS [facility] [id number] N/A History of Encounters Visit Date Visit Type Provider 06/02/2017 Office visit V Taty Awad MD 01/27/2017 Office visit V Taty Awad MD 06/25/2016 Office visit V Taty Awad MD 12/28/2015 Office visit V Taty Awad MD 06/27/2015 Office visit V Taty Awad MD 03/06/2015 Office visit V Taty Awad MD 02/07/2015 [facility] Gualberto Munoz MD 01/22/2015 [facility] Hazel Russell MD 09/06/2014 Office visit V Taty Awad MD 01/23/2014 Office visit Soniya Awad MD 05/01/2011 [facility] Heather Olvera MD 04/27/2011 [facility] Hazel Russell MD 04/27/2011 [facility] Heather Olvera MD
--- OUTSIDE RECORDS SUMMARY | 2018-09-30 10:55 | XMS REPORT ---
Author Author [facility] Organization [facility] Address [address] [place], [place] [address] Care Team Providers Care Rn Surgery Name Role Phone PCP Unavailable Allergies and Adverse Reactions Name Reaction Notes morphine Plan of Treatment Not available. Medications Active Name Start Date Estimated Completion Date SIG Comments amlodipine oral tablet 5 mg metoprolol tartrate oral tablet 25 mg take 1 tablet (25 mg) by oral route 2 times per day losartan-hydrochlorothiazide oral tablet 100-12.5 mg take 1 tablet by oral route once daily levothyroxine oral tablet 50 mcg take 1 tablet (50 mcg) by oral route once daily atorvastatin oral tablet 80 mg take 1 tablet (80 mg) by oral route once daily aspirin oral tablet,delayed release (DR/EC) 325 mg take 1 tablet (325 mg ) by oral route once daily Humalog subcutaneous Lantus subcutaneous solution 100 unit/mL inject by subcutaneous route as per insulin protocol tamsulosin oral capsule,extended release 24hr 0.4 mg 09/06/2014 take 1 capsule (0.4 mg) by [...] Active 03/06/2015 Benign prostate hyperplasia Active 03/06/2015 Vital Signs Date Time BP-Sys(mm[Hg] BP-Jodie(mm[Hg]) HR(bpm) RR(rpm) Temp WT HT HC BMI BSA BMI Percentile O2 Sat(%) 03/06/2015 11:41:00 AM 200 lbs 72 in 27.12 kg/m2 2.15 m2 09/06/2014 10:17:00 AM 200 lbs 72 in 27.1246 kg/m 2.1467 m 01/23/2014 1:22:00 PM 200 lbs 72 in 27.12 kg/m2 2.15 m2 Social History Not available. History of Procedures [...] antigen (PSA) 03/06/2015 Benign prostate hyperplasia 03/06/2015 Elevated PSA Jan 19 2014 8:51AM History [...] Benign prostate hyperplasia Mar 06 2015 11:42AM Payers Insurance Name Company Name Plan Name Plan Number Policy Number Policy Group Number Start Date Medicare Part B Medicare [facility] [id number] N/A [id number] N/A History of Encounters Visit Date Visit Type Provider 03/06/2015 Office visit V Taty Awad MD 02/07/2015 [facility] Gualberto Munoz MD 09/06/2014 Office visit V Taty Awad MD 01/23/2014 Office visit V Taty Awad MD 05/01/2011 [facility] Heather Olvera MD 04/27/2011 [facility] Heather Olvera MD 04/27/2011 [facility] Hazel Russell MD
--- OUTSIDE RECORDS SUMMARY | 2018-09-30 10:55 | XMS REPORT ---
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 Vital Signs Date Time BP-Sys(mm[Hg] BP-Jodie(mm[Hg]) HR(bpm) RR(rpm) Temp WT HT HC BMI BSA BMI Percentile O2 Sat(%) 06/25/2016 8:25:00 AM 130 mmHg 56 mmHg [...] 10:43 AM URINALYSIS AUTO W/O SCOPE Reviewed 01/19/2014 12:00 [...] -VE WBC Est Ur Ql Strip -VE History [...] urine 12/28/2015 Adenofibromatous hypertrophy of prostate 12/28/2015 Elevated PSA Jan 19 2014 8:51AM History [...] hypertrophy of prostate Jun 25 2016 8:27AM Payers Insurance Name Company Name Plan Name Plan Number Policy Number Policy Group Number Start Date Medicare Part B Medicare Of [place] [id number] N/A [id number] N/A History of Encounters Visit Date Visit Type Provider 06/25/2016 Office visit V Taty Awad MD 12/28/2015 Office visit V Taty Awad MD 06/27/2015 Office visit V Taty Awad MD 03/06/2015 Office visit V Taty Awad MD 02/07/2015 [facility] Gualberto Munoz MD 01/22/2015 [facility] Hazel Russell MD 09/06/2014 Office visit V Taty Awad MD 01/23/2014 Office visit V Taty Awad MD 05/01/2011 [facility] Heather Olvera MD 04/27/2011 [facility] Hazel Russell MD 04/27/2011 [facility] Heather Olvera MD
--- OUTSIDE RECORDS SUMMARY | 2018-09-30 10:55 | XMS REPORT ---
Author Gage Martinez [facility] Address [address] [place], [place] [address] Care Team Providers Care Client Account Representative Name Role Phone Gage Gonsalves PCP Unavailable Allergies and Adverse Reactions Name [...] HOUR AFTER THE SAME MEAL EACH DAY` Plavix 75 mg oral tablet take 1 [...] HC BMI BSA BMI Percentile O2 Sat(%) 06/10/2017 3:05:00 PM 140 mmHg 54 mmHg [...] in 27.12 kg/m2 2.15 m2 Social History Name Description Comments [...] 2017 3:18PM Diarrhea Jun 10 2017 3:18PM Payers Insurance Name Company Name Plan Name Plan Number Policy Number Policy Group Number Start Date Medicare Part B Medicare Of [place] [id number] N/A BCBS [facility] [id number] N/A History of Encounters Visit Date Visit Type Provider 06/10/2017 Office visit Gage Gonsalves DO 06/02/2017 Office visit V Taty Awad MD 01/27/2017 Office visit V Taty Awad MD 06/25/2016 Office visit V Taty Awad MD 12/28/2015 Office visit V Taty Awad MD 06/27/2015 Office visit V Taty Awad MD 03/06/2015 Office visit V Taty Awad MD 02/07/2015 [facility] Gualberto Munoz MD 01/22/2015 [facility] Hazel Russell MD 09/06/2014 Office visit V Taty Awad MD 01/23/2014 Office visit V Taty Awad MD 05/01/2011 [facility] Heather Olvera MD 04/27/2011 [facility] Hazel Russell MD 04/27/2011 [facility] Heather Olvera MD
--- OUTSIDE RECORDS SUMMARY | 2018-09-30 10:56 | XMS REPORT ---
Author Author Soniya Awad Organization [facility] Address [address] [place], [place] [phone] Care Team Providers Care Elementary Math Tutor Name Role Phone Soniya Awad PCP Unavailable Allergies and Adverse Reactions Name Reaction Notes morphine Plan of Treatment Planned Activity Comments Planned Date Planned Time Plan/Goal PSA TOTAL 01/19/2017 12:00 AM Medications Active Name Start Date Estimated Completion [...] tamsulosin 0.4 mg oral capsule,extended release 24hr 09/19/2016 take 1 capsule (0.4 mg) by oral [...] Adenofibromatous hypertrophy of prostate 12/28/2015 Elevated PSA Dean 3 2014 8:51AM History of prostate cancer Jan [...] 8:11AM Elevated PSA Jan 19 2017 8:11AM Payers Insurance Name Company Name Plan Name Plan Number Policy Number Policy Group Number Start Date Medicare Part B Medicare Of [place] [id number] N/A BCBS [facility] [id number] N/A History of Encounters Visit Date Visit Type Provider 06/25/2016 Office visit V Taty Awad MD 12/28/2015 Office visit V Taty Awad MD 06/27/2015 Office visit V Taty Awad MD 03/06/2015 Office visit V Taty Awad MD 02/07/2015 [facility] Gualberto Munoz MD 01/22/2015 [facility] Hazel Russell MD 09/06/2014 Office visit V Taty Awad MD 01/23/2014 Office visit V Taty Awad MD 05/01/2011 [facility] Heather Olvera MD 04/27/2011 [facility] Hazel Russell MD 04/27/2011 [facility] Heather Olvera MD
--- OUTSIDE RECORDS SUMMARY | 2018-09-30 10:56 | XMS REPORT ---
Author Author Soniya Awad Organization [facility] Address [address] [place], [place] [address] Care Team Providers Care Wilderness Guide Name Role Phone Soniya Awad PCP Unavailable [...] Family history of prostate carcinoma Active 01/27/2017 Vital Signs Date Time BP-Sys(mm[Hg] BP-Jodie(mm[Hg]) HR(bpm) RR(rpm) Temp WT HT HC BMI BSA BMI Percentile O2 Sat(%) 01/27/2017 8:34:00 AM 110 mmHg 66 mmHg [...] 10:43 AM URINALYSIS AUTO W/O SCOPE Reviewed 01/27/2017 10:27 AM URINALYSIS AUTO W/O SCOPE Reviewed 01/19/2014 [...] WBC Est Ur Ql Strip -VE 01/27/2017 10:27 AM Clarity Ur CLEAR Color [...] 12/28/2015 Family history of prostate carcinoma 01/27/2017 Elevated PSA Jan 19 2014 8:51AM History [...] of prostate carcinoma Jan 27 2017 8:38AM Payers Insurance Name Company Name Plan Name Plan Number Policy Number Policy Group Number Start Date Medicare Part B Medicare [facility] [id number] N/A [id number] N/A History of Encounters Visit Date Visit Type Provider 01/27/2017 Office visit V Taty Awad MD 06/25/2016 Office visit V Taty Awad MD 12/28/2015 Office visit V Taty Awad MD 06/27/2015 Office visit V Taty Awad MD 03/06/2015 Office visit V Taty Awad MD 02/07/2015 [facility] Gual[facility]to Munoz MD 01/22/2015 [facility] Hazel Russell MD 09/06/2014 Office visit V Taty Awad MD 01/23/2014 Office visit V Taty Awad MD 05/01/2011 [facility] Heather Olvera MD 04/27/2011 [facility] Hazel Russell MD 04/27/2011 [facility] Heather Olvera MD
--- OUTSIDE RECORDS SUMMARY | 2018-09-30 10:56 | XMS REPORT ---
Author Author Soniya Awad Organization [facility] Address [address] [place], [place] [id number] Care Team Providers Care Taxation Accountant Name Role Phone Soniya Awad PCP Unavailable [...] Family history of prostate cancer Active 01/30/2017 Vital Signs Date Time BP-Sys(mm[Hg] BP-Jodie(mm[Hg]) HR(bpm) [...] 3:53 PM URINALYSIS AUTO W/O SCOPE Reviewed 01/19/2014 [...] 01/27/2017 Family history of prostate cancer 01/30/2017 Elevated PSA Jan 19 2014 8:51AM History [...] of prostate cancer Jan 30 2017 3:51PM Payers Insurance Name Company Name Plan Name Plan Number Policy Number Policy Group Number Start Date Medicare Part B Medicare Of [place] [id number] N/A [id number] N/A History of Encounters Visit Date Visit Type Provider 01/27/2017 Office visit V Taty Awad MD 06/25/2016 Office visit V Taty Awad MD 12/28/2015 Office visit V Taty Awad MD 06/27/2015 Office visit V Taty Awad MD 03/06/2015 Office visit V Taty Awad MD 02/07/2015 [facility] Gualberto Munoz MD 01/22/2015 [facility] Hazel Russell MD 09/06/2014 Office visit V Taty Awad MD 01/23/2014 Office visit V Taty Awad MD 05/01/2011 [facility] Heather Olvera MD 04/27/2011 [facility] Hazel Russell MD 04/27/2011 [facility] Heather Olvera MD
--- OUTSIDE RECORDS SUMMARY | 2018-09-30 10:57 | XMS REPORT | Continuity of Care Document ---
Author Author [facility] Organization [facility] Address Unknown Phone Unavailable Allergies Active Description Code Type Severity Reaction Onset Reported/Identified Relationship to Patient Clinical Status Yes MORPHINE [id number] DRUG N/A HALLUCINATIONS Yes morphine [id number] Drug Allergy Unknown N/A 02/15/2018 Medications There is no data. Problems Date Dx Coded Attending Type Code Diagnosis Diagnosed By 06/19/2016 ZOHAIB WOOD E11.9 Type 2 diabetes mellitus without complications 06/19/2016 ZOHAIB WOOD N40.1 Benign prostatic hyperplasia with lower urinary tract symp 01/07/2017 ZOHAIB WOOD E11.9 Type 2 diabetes mellitus without complications 01/07/2017 ZOHAIB WOOD Z00.00 Encntr for general adult medical exam w/o abnormal findings 05/21/2017 ZOHAIB WOOD A09 Infectious gastroenteritis and colitis, unspecified 05/21/2017 ZOHAIB WOOD E11.9 Type 2 diabetes mellitus without complications 05/21/2017 ZOHAIB WOOD Z12.5 Encounter for screening for malignant neoplasm of prostate 09/28/2017 ZOHAIB WOOD L72.3 Sebaceous cyst 10/02/2017 KAMARI BYRD-Dez Other M79.641 PAIN IN RIGHT HAND 10/02/2017 ZOHAIB WOOD J40 Bronchitis, not specified as acute or chronic 02/05/2018 Opal REED MD Ot E11.9 TYPE 2 DIABETES MELLITUS WITHOUT COMPLIC 02/05/2018 Opal REED MD Ot G47.33 OBSTRUCTIVE SLEEP APNEA (ADULT) (PEDIATR 02/05/2018 Opal REED MD Ot I10 ESSENTIAL (PRIMARY) HYPERTENSION 02/05/2018 Opal REED MD Ot I25.10 ATHSCL HEART DISEASE OF [place] CORONARY 02/05/2018 Opal REED MD Ot I49.5 SICK SINUS SYNDROME 02/05/2018 Opal REED MD Ot J44.9 CHRONIC OBSTRUCTIVE PULMONARY DISEASE, U 02/05/2018 Opal REED MD Ot Z95.0 PRESENCE OF CARDIAC PACEMAKER 02/12/2018 Opal REED MD Ot E11.9 TYPE 2 DIABETES MELLITUS WITHOUT COMPLIC 02/12/2018 Opal REED MD Ot G47.33 OBSTRUCTIVE SLEEP APNEA (ADULT) (PEDIATR 02/12/2018 Opal REED MD Ot I10 ESSENTIAL (PRIMARY) HYPERTENSION 02/12/2018 Opal REED MD Ot I25.10 ATHSCL HEART DISEASE OF [place] CORONARY 02/12/2018 Opal REED MD Ot I49.5 SICK SINUS SYNDROME 02/12/2018 Opal REED MD Ot J44.9 CHRONIC OBSTRUCTIVE PULMONARY DISEASE, U 02/12/2018 Opal REED MD Ot Z95.0 PRESENCE OF CARDIAC PACEMAKER 02/16/2018 BRIANNA CASTILLO, Opal STEIN Ot R06.02 SHORTNESS OF BREATH 03/09/2018 Opal REED MD Ot R06.02 SHORTNESS OF BREATH 03/19/2018 Opal REED MD Ot R06.02 SHORTNESS OF BREATH 04/13/2018 TEO RODRIGUEZ APRN Ot G47.33 OBSTRUCTIVE SLEEP APNEA (ADULT) (PEDIATR 04/26/2018 Opal REED MD Ot E11.9 TYPE 2 DIABETES MELLITUS WITHOUT COMPLIC 04/26/2018 Opal REED MD Ot G47.33 OBSTRUCTIVE SLEEP APNEA (ADULT) (PEDIATR 04/26/2018 Opal REED MD Ot I10 ESSENTIAL (PRIMARY) HYPERTENSION 04/26/2018 Opal REED MD Ot I25.10 ATHSCL HEART DISEASE OF [place] CORONARY 04/26/2018 Opal REED MD Ot I49.5 SICK SINUS SYNDROME 04/26/2018 Opal REED MD Ot J44.9 CHRONIC OBSTRUCTIVE PULMONARY DISEASE, U 04/26/2018 Opal REED MD Ot Z95.0 PRESENCE OF CARDIAC PACEMAKER 04/26/2018 Opal REED MD Ot R06.02 SHORTNESS OF BREATH 04/26/2018 MICHAELGUERO CABAINE Orly DOG TRAINER Ot G47.33 OBSTRUCTIVE SLEEP APNEA (ADULT) (PEDIATR 04/26/2018 MICHAEL, TEO E DOG TRAINER Ot G47.33 OBSTRUCTIVE SLEEP APNEA (ADULT) (PEDIATR 04/29/2018 MICHAEL TEO E DOG TRAINER Ot J44.9 CHRONIC OBSTRUCTIVE PULMONARY DISEASE, U 04/29/2018 MICHAEL, TEO E DOG TRAINER Ot J98.4 OTHER DISORDERS OF LUNG 04/29/2018 MICHAELGUEROTEO Orly DOG TRAINER Ot R91.1 SOLITARY PULMONARY NODULE 04/29/2018 GUERO RODRIGUEZINE Orly DOG TRAINER Ot Z95.0 PRESENCE OF CARDIAC PACEMAKER 04/30/2018 MICHAEL, TEO E DOG TRAINER Ot G47.33 OBSTRUCTIVE SLEEP APNEA (ADULT) (PEDIATR 05/05/2018 MICHAELGUERO CABAINE Orly DOG TRAINER Ot G47.33 OBSTRUCTIVE SLEEP APNEA (ADULT) (PEDIATR 05/05/2018 MICHAELGUEROTEO E DOG TRAINER Ot G47.33 OBSTRUCTIVE SLEEP APNEA (ADULT) (PEDIATR 05/06/2018 ZOHAIB WOOD E03.9 Hypothyroidism, unspecified 05/06/2018 ZOHAIB WOOD E11.9 Type 2 diabetes mellitus without complications 05/18/2018 GUERO RODRIGUEZINE Orly DOG TRAINER Ot J44.9 CHRONIC OBSTRUCTIVE PULMONARY DISEASE, U 05/18/2018 GUERO RODRIGUEZINE E DOG TRAINER Ot J98.4 OTHER DISORDERS OF LUNG 05/18/2018 TEO RODRIGUEZ DOG TRAINER Ot R91.1 SOLITARY PULMONARY NODULE 05/18/2018 GUERO RODRIGUEZINE Orly DOG TRAINER Ot Z95.0 PRESENCE OF CARDIAC PACEMAKER 05/24/2018 GUERO RODRIGUEZINE Orly DOG TRAINER Ot J44.9 CHRONIC OBSTRUCTIVE PULMONARY DISEASE, U 05/24/2018 GUERO RODRIGUEZINE Orly DOG TRAINER Ot J98.4 OTHER DISORDERS OF LUNG 05/24/2018 MICHAELGUEROTEO E DOG TRAINER Ot R91.1 SOLITARY PULMONARY NODULE 05/24/2018 MICHAELGUERO CABAINE E DOG TRAINER Ot Z95.0 PRESENCE OF CARDIAC PACEMAKER 06/02/2018 VONNIE ROBBINS DO Ot G47.33 OBSTRUCTIVE SLEEP APNEA (ADULT) (PEDIATR 06/02/2018 VONNIE ROBBINS DO Ot G47.33 OBSTRUCTIVE SLEEP APNEA (ADULT) (PEDIATR 06/28/2018 VONNIE ROBBINS DO Ot G47.33 OBSTRUCTIVE SLEEP APNEA (ADULT) (PEDIATR 06/29/2018 KAMARI BYRD PA-C Other M79.641 PAIN IN RIGHT HAND 06/29/2018 Other R05 COUGH 06/29/2018 Other J40 BRONCHITIS, NOT SPECIFIED ACUTE OR CHRONIC 07/24/2018 VONNIE ROBBINS DO Ot G47.10 HYPERSOMNIA, UNSPECIFIED 07/24/2018 VONNIE ROBBINS DO Ot G47.33 OBSTRUCTIVE SLEEP APNEA (ADULT) (PEDIATR 07/27/2018 Other J40 BRONCHITIS, NOT SPECIFIED ACUTE OR CHRONIC 07/27/2018 VONNIE ROBBINS DO Ot G47.10 HYPERSOMNIA, UNSPECIFIED 07/27/2018 VONNIE ROBBINS DO Ot G47.33 OBSTRUCTIVE SLEEP APNEA (ADULT) (PEDIATR 09/17/2018 Opal REED MD Ot E11.9 TYPE 2 DIABETES MELLITUS WITHOUT COMPLIC 09/17/2018 Opal REED MD Ot I07.1 RHEUMATIC TRICUSPID INSUFFICIENCY 09/17/2018 Opal REED MD Ot I10 ESSENTIAL (PRIMARY) HYPERTENSION 09/17/2018 Opal REED MD Ot I25.10 ATHSCL HEART DISEASE OF [place] CORONARY 09/17/2018 Opal REED MD Ot I49.5 SICK SINUS SYNDROME 09/17/2018 Opal REED MD Ot I77.9 DISORDER OF ARTERIES AND ARTERIOLES, UNS 09/17/2018 Opal REED MD Ot J44.9 CHRONIC OBSTRUCTIVE PULMONARY DISEASE, U 09/17/2018 Opal REED MD Ot R06.00 DYSPNEA, UNSPECIFIED 09/17/2018 Opal REED MD Ot R53.83 OTHER FATIGUE 09/17/2018 Opal REED MD Ot Z95.0 PRESENCE OF CARDIAC PACEMAKER 09/30/2018 Opal REED MD Ot E11.9 TYPE 2 DIABETES MELLITUS WITHOUT COMPLIC 09/30/2018 KHALID MD, M SARITA Ot G47.33 OBSTRUCTIVE SLEEP APNEA (ADULT) (PEDIATR 09/30/2018 Opal REED MD Ot I10 ESSENTIAL (PRIMARY) HYPERTENSION 09/30/2018 Opal REED MD Ot I25.10 ATHSCL HEART DISEASE OF [place] CORONARY 09/30/2018 Opal REED MD Ot I49.5 SICK SINUS SYNDROME 09/30/2018 Opal REED MD Ot J44.9 CHRONIC OBSTRUCTIVE PULMONARY DISEASE, U 09/30/2018 Opal REED MD Ot Z95.0 PRESENCE OF CARDIAC PACEMAKER 09/30/2018 Opal REED MD Ot R06.02 SHORTNESS OF BREATH 09/30/2018 TEO RODRIGUEZ APRN Ot J44.9 CHRONIC OBSTRUCTIVE PULMONARY DISEASE, U 09/30/2018 TEO RODRIGUEZ APRN Ot J98.4 OTHER DISORDERS OF LUNG 09/30/2018 TEO RODRIGUEZ APRN Ot R91.1 SOLITARY PULMONARY NODULE 09/30/2018 TEO RODRIGUEZ APRN Ot Z95.0 PRESENCE OF CARDIAC PACEMAKER 09/30/2018 Opal REED MD Ot E11.9 TYPE 2 DIABETES MELLITUS WITHOUT COMPLIC 09/30/2018 Opal REED MD Ot I07.1 RHEUMATIC TRICUSPID INSUFFICIENCY 09/30/2018 Opal REED MD Ot I10 ESSENTIAL (PRIMARY) HYPERTENSION 09/30/2018 Opal REED MD Ot I25.10 ATHSCL HEART DISEASE OF [place] CORONARY 09/30/2018 Opal REED MD Ot I49.5 SICK SINUS SYNDROME 09/30/2018 Opal REED MD Ot I77.9 DISORDER OF ARTERIES AND ARTERIOLES, UNS 09/30/2018 Opal REED MD Ot J44.9 CHRONIC OBSTRUCTIVE PULMONARY DISEASE, U 09/30/2018 Opal REED MD Ot R06.00 DYSPNEA, UNSPECIFIED 09/30/2018 Opal REED MD Ot R53.83 OTHER FATIGUE 09/30/2018 Opal REED MD Ot Z95.0 PRESENCE OF CARDIAC PACEMAKER Procedures Code Description [place] [address] ROUTINE VENIPUNCTURE ZOHAIB WOOD 06/19/2016 40072 GLYCOSYLATED HEMOGLOBIN TEST ZOHAIB WOOD 06/19/2016 94510 ASSAY OF PSA TOTAL ZOHAIB WOOD 06/19/2016 62599 COMPREHEN METABOLIC PANEL ZOHAIB WOOD 01/07/2017 08348 LIPID PANEL ZOHAIB WOOD 01/07/2017 29584 URINALYSIS AUTO W/SCOPE ZOHAIB WOOD 01/07/2017 89568 COMPLETE CBC W/AUTO DIFF WBC ZOHAIB WOOD 01/07/2017 91512 COMPREHEN METABOLIC PANEL ZOHAIB WOOD 05/21/2017 56013 URINALYSIS AUTO W/SCOPE ZOHAIB WOOD 05/21/2017 13895 MICROALBUMIN SEMIQUANT ZOHAIB WOOD 05/21/2017 73384 ASSAY OF URINE CREATININE ZOHAIB WOOD 05/21/2017 76514 GLYCOSYLATED HEMOGLOBIN TEST ZOHAIB WOOD 05/21/2017 51693 ASSAY THYROID STIM HORMONE ZOHAIB WOOD 05/21/2017 79112 COMPLETE CBC W/AUTO DIFF WBC ZOHAIB WOOD 05/21/2017 43223 IADNA-DNA/RNA PROBE TQ 12- 25 ZOHAIB WOOD 05/21/2017 G0103 PSA SCREENING ZOHAIB WOOD 05/21/2017 84168 CULTURE OTHR SPECIMN AEROBIC ZOHAIB WOOD 09/28/2017 19952 CULTURE AEROBIC IDENTIFY ZOHAIB WOOD 09/28/2017 69486 MICROBE SUSCEPTIBLE VINAYAK ZOHAIB WOOD 09/28/2017 59451 SMEAR GRAM STAIN ZOHAIB WOOD 09/28/2017 20951 COMPREHEN METABOLIC PANEL ZOHAIB WOOD 10/02/2017 05592 BL SMEAR W/DIFF WBC COUNT ZOHAIB WOOD 10/02/2017 74484 COMPLETE CBC AUTOMATED ZOHAIB WOOD 10/02/2017 23402 COMPREHEN METABOLIC PANEL ZOHAIB WOOD 05/06/2018 33683 LIPID PANEL ZOHAIB WOOD 05/06/2018 11620 UR ALBUMIN SEMIQUANTITATIVE ZOHAIB WOOD 05/06/2018 46824 ASSAY OF URINE CREATININE ZOHAIB WOOD 05/06/2018 41275 GLYCOSYLATED HEMOGLOBIN TEST ZOHAIB WOOD 05/06/2018 56503 ASSAY THYROID STIM HORMONE JACQUELINE MIGDALIAZOHAIB 05/06/2018 43438 COMPLETE CBC W/AUTO DIFF WBC ZOHAIB WOOD 05/06/2018 Results Test Result Range Hgb A1c - 06/19/16 14:09 Hgb A1c 7.1 % < 6.0 PSA - 06/20/16 17:58 PSA 5.4 NG/ML <=4.0 PTH, Intact - 06/22/18 06:30 PTH, Intact 29 pg/mL 15-65 Encounters ACCT No. Visit Date/Time Discharge Status Pt. Type Provider Facility Loc./Unit Complaint [id number] 05/06/2018 08:20:00 05/06/2018 08:20:00 DIS Outpatient ZOHAIB WOOD LAB [id number] 10/02/2017 11:55:00 10/02/2017 11:55:00 DIS Outpatient ZOHAIB WOOD [id number] 09/28/2017 12:10:00 09/28/2017 12:10:00 DIS Outpatient ZOHAIB WOOD [facility] LAB [id number] 05/21/2017 17:56:00 05/21/2017 17:56:00 DIS Outpatient ZOHAIB WOOD [facility] LAB [id number] 01/07/2017 17:09:00 01/07/2017 17:09:00 DIS Outpatient ZOHAIB WOOD [facility] LAB [id number] 06/19/2016 13:12:00 06/19/2016 13:12:00 DIS Outpatient ZOHAIB WOOD [facility] OTHER [id number] 01/02/2017 13:18:00 01/02/2017 23:59:59 CLS Outpatient KAMARI BYRD PA-C [facility] [id number] 06/28/2018 15:38:00 Document Registration [id number] 10/02/2017 11:37:00 Document Registration [id number] 2017 13:25:43 2017 23:59:59 DIS Outpatient Alison Hein [id number] 10/02/2017 18:20:49 ACT Document Registration [id number] 06/23/2018 11:29:24 Document Registration [id number] 06/16/2017 00:56:48 Document Registration [id number] 09/16/2018 07:43:00 09/16/2018 23:59:59 CLS Outpatient Opal REED MD [facility] CARD CAD [id number] 08/04/2018 07:31:00 08/04/2018 23:59:59 CLS Preadmit Opal REED MD [facility] CARD CAD,SOB,COPD,FATIGUE [id number] 08/04/2018 07:29:00 08/04/2018 23:59:59 CLS Preadmit Opal REED MD [facility] CARD CAD,CAROTID ARTERY DISEASE,SOB [id number] 07/23/2018 21:00:00 07/24/2018 07:09:00 DIS Outpatient VONNIE ROBBINS DO [facility] SLEEP SHASHANK [id number] 05/12/2018 15:02:00 05/12/2018 23:59:59 CLS Preadmit TEO RODRIGUEZ APRN [facility] RAD LUNG NODULE,COPD [id number] 04/29/2018 20:00:00 04/30/2018 06:09:00 DIS Outpatient TEO RODRIGUEZ APRN [facility] SLEEP OBSTRUCTIVE SLEEP APNEA [id number] 04/28/2018 11:37:00 04/28/2018 23:59:59 CLS Outpatient TEO RODRIGUEZ APRN [facility] RAD COPD [id number] 02/15/2018 14:03:00 02/15/2018 23:59:59 CLS Outpatient Opal REED MD [facility] RT SOB [id number] 02/04/2018 10:04:00 02/04/2018 23:59:59 CLS Outpatient Opal REED MD [facility] CARD CAD,COPD, HTN,SHASHANK [id number] 09/30/2018 10:48:00 ACT Outpatient Opal REED MD [facility] STRESS TEST [id number] 06/23/2018 11:22:00 Document Registration [id number] 06/28/2017 20:05:00 Document Registration [id number] 05/17/2015 09:28:39 05/17/2015 23: 59:59 CLS Outpatient [id number] 05/17/2015 09:29:27 05/17/2015 09: 29:28 DIS Outpatient [id number] 05/17/2015 09:28:38 05/17/2015 09: 28:38 DIS Outpatient [id number] 05/17/2015 09:28:37 05/17/2015 09: 28:37 DIS Outpatient [id number] 05/17/2015 09:28:36 05/17/2015 09: 28:36 DIS Outpatient [id number] 05/16/2015 09:47:42 05/16/2015 09: 47:43 DIS Outpatient [id number] 05/15/2015 17:32:42 05/15/2015 23: 59:59 CLS Outpatient [id number] 05/15/2015 08:41:48 05/15/2015 23: 59:59 CLS Outpatient [id number] 05/15/2015 08:42:28 05/15/2015 08: 42:31 DIS Outpatient [id number] 05/15/2015 08:40:47 05/15/2015 08: 40:52 DIS Outpatient [id number] 09/15/2018 12:05:58 09/15/2018 23:59:59 CLS Outpatient Gage Gonsalves [id number] 06/23/2018 10:52:38 06/23/2018 23:59:59 CLS Outpatient Adan Garcia [id number] 12/18/2017 15:43:32 12/18/2017 23:59:59 CLS Outpatient Adan Garcia [id number] 06/23/2017 15:11:34 06/23/2017 23:59:59 CLS Outpatient Gage Gonsalves [id number] 06/10/2017 15:01:16 06/10/2017 23:59:59 CLS Outpatient Gage Gonsalves [id number] 06/02/2017 11:23:36 06/02/2017 23:59:59 CLS Outpatient Delmi, V S [id number] 01/27/2017 09:38:31 01/27/2017 23:59:59 CLS Outpatient Delmi, V S [id number] 06/25/2016 09:17:06 06/25/2016 23:59:59 CLS Outpatient Delmi, V S [id number] 06/27/2015 11:31:50 06/27/2015 23:59:59 CLS Outpatient Delmi, V S [id number] 03/19/2015 07:59:17 03/19/2015 23:59:59 CLS Outpatient Hazel Russell [id number] 03/06/2015 11:55:38 03/06/2015 23:59:59 CLS Outpatient Delmi, V S [id number] 02/26/2015 22:28:32 02/26/2015 23:59:59 CLS Outpatient Xochilt Parrish [id number] 01/23/2014 14:14:24 01/23/2014 23:59:59 CLS Outpatient Delmi, V S
--- OUTSIDE RECORDS SUMMARY | 2018-09-30 10:57 | XMS REPORT ---
Author Author Soniya Awad Organization [facility] Address [address] [place], [place] [address] Care Team Providers Care National Sales Representative Name Role Phone Soniya Awad PCP Unavailable Allergies and Adverse Reactions Name Reaction Notes morphine Plan of Treatment Planned Activity Comments Planned Date Planned Time Plan/Goal ASSAY OF PSA TOTAL 12/28/2015 12:00 AM Medications Active Name Start Date [...] tamsulosin 0.4 mg oral capsule,extended release 24hr 12/14/2015 take 1 capsule (0.4 mg) by oral [...] Benign prostate hyperplasia Dec 28 2015 10:42AM Payers Insurance Name Company Name Plan Name Plan Number Policy Number Policy Group Number Start Date Medicare Part B Medicare Of [place] [id number] N/[id number] N/A History of Encounters Visit Date Visit Type Provider 06/27/2015 Office visit V Taty Awad MD 03/06/2015 Office visit V Taty Awad MD 02/07/2015 [facility] Gualberto Munoz MD 01/22/2015 [facility] Hazel Russell MD 09/06/2014 Office visit V Taty Awad MD 01/23/2014 Office visit V Taty Awad MD 05/01/2011 [facility] Heather Olvera MD 04/27/2011 [facility] Hazel Russell MD 04/27/2011 [facility] Heather Olvera MD
--- OUTSIDE RECORDS SUMMARY | 2018-09-30 10:57 | XMS REPORT ---
Author Author Soniya Awad Organization [facility] Address [address] [place], [place] [address] Care Team Providers Care Strainer Cleaner Name Role Phone Soniya Awad PCP Unavailable [...] HC BMI BSA BMI Percentile O2 Sat(%) 12/28/2015 11:03:00 AM 128 mmHg 60 mmHg [...] Procedures Date Ordered Description Order Status 12/28/2015 2:35 PM URINALYSIS AUTO W/O SCOPE Reviewed 01/19/2014 [...] 11:06AM Drug therapy Dec 28 2015 11:06AM Payers Insurance Name Company Name Plan Name Plan Number Policy Number Policy Group Number Start Date Medicare Part B Medicare [facility] [id number] N/A [facility] [id number] N/A History of Encounters Visit Date Visit Type Provider 12/28/2015 Office visit V Taty Awad MD 06/27/2015 Office visit V Taty Awad MD 03/06/2015 Office visit V Taty Awad MD 02/07/2015 [facility] Gualberto Munoz MD 01/22/2015 [facility] Hazel Russell MD 09/06/2014 Office visit V Taty Awad MD 01/23/2014 Office visit V Taty Awad MD 05/01/2011 [facility] Heather Olvera MD 04/27/2011 [facility] Hazel Russell MD 04/27/2011 [facility] Heather Olvera MD
[2018-09-30] MEDS ORDERED: NS IV 1000 ML 2,000 ML ONE (11:07)
[2018-09-30] MEDS ORDERED: HEParin 1000 UNIT/ML (10ML VIAL) FOR BOLUS ONE ×2 (11:07→14:02)
[2018-09-30] MEDS ORDERED: LIDOCAINE 1% INJ 20 ML 20 ML VIAL ONE (11:07)
[2018-09-30] MEDS ORDERED: NS IV 1000 ML 1,000 ML ONE (11:08)
[2018-09-30] MEDS ORDERED: NS IV 1000 ML 1,000 ML IV SCH (11:38)
[2018-09-30 11:59] LABS: HEMOGLOBIN 14.2 G/DL (13.3-17.7); RED CELL DISTRIBUTION WIDTH 13.8 % (10.0-14.5)
[2018-09-30] MEDS ORDERED: FLUT1AER IH (12:07)
[2018-09-30] MEDS ORDERED: ATOR80TA76 PO (12:07)
[2018-09-30] MEDS ORDERED: NIFE60TA64 PO (12:07)
[2018-09-30] MEDS ORDERED: INSU100I23 SQ (12:07)
[2018-09-30] MEDS ORDERED: POTA10CA43 PO (12:07)
[2018-09-30] MEDS ORDERED: TAMS0.4C98 PO (12:07)
[2018-09-30] MEDS ORDERED: LOSA100T57 PO (12:07)
[2018-09-30] MEDS ORDERED: FURO-124 PO (12:07)
[2018-09-30] MEDS ORDERED: METO-333 PO (12:07)
[2018-09-30] MEDS ORDERED: INSU100I10 SQ (12:07)
[2018-09-30] MEDS ORDERED: ASPI-983 PO (12:07)
[2018-09-30] MEDS ORDERED: LEVO50TA6 PO (12:09)
[2018-09-30 12:10] LABS: PROTHROMBIN TIME PATIENT 13.4 SEC (12.2-14.7)
--- NOTE | 2018-09-30 12:15 | NUR ---
PATIENT DID NOT HAVE A LITS OR HIS MEDICATIONS WITH HIM. WE WENT OVER THE LIST ON THE CHART FROM THE OFFICE AND HE VERIFIED HOW HE TAKES THEM. I CALLED [facility] FOR A LIST OF RECENTLY FILLED MEDICATIONS TO VERIFY. [facility] FILLED: 09-17-18 LANTUS 09-13-18 PLAVIX 75MG DAILY (STATES HE IS NO LONGER TAKING, WAS NOT ON THE LIST FROM OFFICE SO DID NOT INCLUDE ON MED REC) 09-13-18 LEVOTHYROXINE 50MCG 09-13-18 LIPITOR 80MG 09-13-18 LOSARTAN 100MG 09-03-18 POTASSIUM 10MEQ BID 08-25-18 NIFEDIPINE ER 60MG 08-25-18 HUMALOG 08-25-18 METOPROLOL TARTRATE 25MG 08-04-18 BREO 200 (STATES HE ONLY USES PRN) 06-28-19 LASIX 40MG #90 06-23-19 FLOMAX 0.4MG #90 HE TAKES ASPIRIN 81MG DAILY OTC Addendum: 09/30/18 at 1351 by KERLINE STEWART [facility] FAMILY IS REPORTING TO NURSING STAFF IN PREFABRICATOR THE PATIENT IS TAKING THE PLAVIX NOW, I ADDED IT TO THE MED REC AT THIS TIME.
[2018-09-30] MEDS ORDERED: FLUT1BLS IH (12:18)
[2018-09-30 12:20] LABS: ALANINE AMINOTRANSFERASE 17 U/L (0-55); ALBUMIN 4.1 GM/DL (3.2-4.5); ALKALINE PHOSPHATASE 77 U/L (40-136); BILIRUBIN,TOTAL 0.8 MG/DL (0.1-1.0); BUN/CREATININE RATIO 17; CALCIUM 9.6 MG/DL (8.5-10.1); CARBON DIOXIDE 27 MMOL/L (21-32); CHLORIDE 99 MMOL/L (98-107); CHOLESTEROL 139 MG/DL (< 200); CREATININE SERUM 1.12 MG/DL (0.60-1.30); GFR ESTIMATED > 60; GLUCOSE 173 MG/DL (70-105); HDL CHOLESTEROL 46 MG/DL (40-60); POTASSIUM 4.1 MMOL/L (3.6-5.0); SODIUM 134 MMOL/L (135-145); TOTAL PROTEIN 6.6 GM/DL (6.4-8.2); TRIGLYCERIDES 63 MG/DL (<150); VLDL CHOLESTEROL 13 MG/DL (5-40)
[2018-09-30] MEDS ORDERED: fentaNYL INJECTION 100 MCG/2 ML AMP ONE (12:30)
[2018-09-30] MEDS ORDERED: NITRO DRIP 25000 MCG/D5W 250 ML IV ONE (12:30)
[2018-09-30] MEDS ORDERED: VERAPAMIL 5 MG/2 ML (CALAN) VIAL IV ONE (12:30)
[2018-09-30] MEDS ORDERED: MIDAZOLAM 5 MG/5 ML (VERSED) VIAL ONE (12:30)
[2018-09-30] MEDS ORDERED: TICAGRELOR 90 MG TABLET (BRILINTA) PO ONE (13:18)
[2018-09-30] MEDS ORDERED: CLOP75TA69 PO (13:50)
--- NOTE | 2018-09-30 14:23 | Cardiac Procedure Note-CS/ASA ---
Pre-Procedure Note Pre-Op Procedure Note H&P Reviewed The H&P was reviewed, patient examined and no changes noted. Date H&P Reviewed: Sep 30, 2018 Time H&P Reviewed: 11:30 Conscious Sedation Pre-Proced Time 11:30 ASA Score 3 For ASA 3 and 4: Consider anesthesia and medical clearance. Also, for patients with a history of failed moderate sedation consider anesthesia. Airway Lungs Heart ASA score ASA 1: a normal healthy patient ASA 2: a patient with a mild systemic disease (mid diabetes, controlled hypertension, obesity ASA 3: a patient with a severe systemic disease that limits activity (angina , COPD, prior Myocardial infarction) ASA 4: a patient with an incapacitating disease that is a constant threat to life (CHF, renal failure) ASA 5: a moribund patient not expected to survive 24 hrs. (ruptured aneurysm) ASA 6: a declared brain- patient whose organs are being harvested. For emergent operations, add the letter E after the classification Mallampati Classification Grade 1 Sedation Plan Analgesia, Amnesia, Plan communicated to team members, Discussed options with patient/fam, Discussed risks with patient/fam The patient is an appropriate candidate to undergo the planned procedure, sedation, and anesthesia. The patient immediately re-assessed prior to indication. Opal REED MD Sep 30, 2018 14:23
--- NOTE | 2018-09-30 14:23 | Coronary Angiography & PCI ---
Coronary Angiography & PCI DATE OF PROCEDURE: 09/30/18 INDICATION: Shortness of breath, abnormal nuclear stress test. PREOPERATIVE DIAGNOSIS: Shortness of breath, abnormal nuclear stress test. POSTOPERATIVE DIAGNOSIS: Severe two-vessel CAD, successful balloon angioplasty. HISTORY: This is a 83-year-old gentleman who has a permanent pacemaker with significant RV pacing. Echocardiogram showed mild LV systolic dysfunction. Nuclear stress test showed reversible defect. Therefore, the patient was scheduled for coronary angiography. PROCEDURES PERFORMED: 1.Coronary angiography. 2.Left heart catheterization. 3.PTCA to severe in-stent restenosis in the proximal left circumflex artery. COMPLICATIONS: None. SPECIMENS: None. ESTIMATED BLOOD LOSS: 10 mL ANESTHESIA: Conscious sedation ANTICOAGULATION: IV heparin CONTRAST: 117 ml. FLUOROSCOPY: 27.2 min. FLOUROSCOPY DOSE: 1889 mgy. PROCEDURE DETAILS: The patient is a 83 male and was brought to the label tacker after informed consent was taken. All the risks and complications were explained in detail; this included the risk of bleeding, vascular damage, stroke , GA and even . The patient was draped and prepped in the usual sterile fashion. Access was gained in the right radial artery with a 6 Telugu sheath. Coronary angiography and left heart catheterization was performed with the Catarina catheter. FINDINGS: 1.Left main: Patent. 2.LAD: Mild diffuse disease with no focal stenosis. 3.Left circumflex artery: Severe in-stent restenosis in the proximal/mid left circumflex artery stent. Moderate to severe disease in distal OM 1 artery. Small artery with a diameter of 1.5 mm. 4.RCA: Severe distal RCA stenosis, however small artery with a diameter of 1.5 mm. 5.Left heart catheterization: LV pressure 110/11 mmHg. LVEDP 17 mmHg. Aortic pressure 99/42 mmHg. Preserved LV function with no wall motion abnormalities. No gradient across the aortic valve. RECOMMENDATIONS: Balloon angioplasty to severe in-stent restenosis in the left circumflex artery is recommended. INTERVENTION DETAILS: JL4 guide catheter, whisper extra-support guidewire, IV heparin for anticoagulation. ACT was done which was above 200 seconds. We crossed the lesion in the left circumflex artery with difficulty. Significant tortuosity and angle of the left circumflex artery made it difficult to access the left circumflex artery. However we were able to get into the distal left circumflex artery/OM 1. We then took a NC Quantum 2.5 x 12 mm and performed 2 inflations at 16 nallely for 46 seconds and 20 nallely for 63 seconds. Significant improvement however mild residual stenosis is noted. Stenosis severity 10-20 percent. We tried to see if we will be able to cross the lesion with the stent but were not able to cross a resolute integrity 2.25 x 12 or Xience Amy 2.5 x 8 mm. We tried using a guide liner but were still unsuccessful. We also tried using BMW as a omid wire but were still unable to cross the lesion with the stent. At this point in time we decided to stop. CONCLUSIONS: 1. PTCA to the in-stent restenosis in the LCX stent. 2. Stents were not done. If required in the future he might require right femoral artery approach with an EBU guide catheter and extra-support wire. Discussed at length with the patient. Caden Acevedo MD, FACP, FACC, [facility] Interventional Cardiology Opal ACEVEDO MD Sep 30, 2018 14:23
[2018-09-30] MEDS ORDERED: PATIENT MAY USE OWN MEDS, ALL PO SCH (14:30)
[2018-09-30] MEDS: NS IV 1000 ML 1,000 ML IV SCH (15:19)
[2018-10-01] VITALS: BP 168/71
[2018-10-01] MEDS: NS IV 1000 ML 1,000 ML IV SCH (00:45)
[2018-10-01 03:27] LABS: HEMOGLOBIN 14.1 G/DL (13.3-17.7); RED CELL DISTRIBUTION WIDTH 13.7 % (10.0-14.5); WHITE BLOOD COUNT 6.7 10^3/uL (4.3-11.0)
[2018-10-01 03:52] LABS: BUN/CREATININE RATIO 20; CALCIUM 9.1 MG/DL (8.5-10.1); CARBON DIOXIDE 22 MMOL/L (21-32); CHLORIDE 102 MMOL/L (98-107); CREATININE SERUM 0.97 MG/DL (0.60-1.30); GFR ESTIMATED > 60; GLUCOSE 229 MG/DL (70-105); POTASSIUM 4.5 MMOL/L (3.6-5.0); SODIUM 133 MMOL/L (135-145)
[2018-10-01 04:09] VITALS: BP 151/65
[2018-10-01 05:11] VITALS: BP 123/66
[2018-10-01 08:00] VITALS: BP 165/64
[2018-10-01] MEDS ORDERED: ASPIRIN E.C. 81 MG (ECOTRIN) TAB PO SCH (09:00)
[2018-10-01] MEDS ORDERED: CLOPIDOGREL 75 MG (PLAVIX) TABLET PO SCH (09:00)
--- NOTE | 2018-10-01 12:47 | Discharge Inst-Post CATH ---
Discharge Inst-CATH/EP Post Cardiac Cath/EP D/C Inst Follow Up/Plan Dr Acevedo at previously scheduled appointment. CARDIAC CATH DISCHARGE INSTRUCTIONS *Hold Metformin for 48 hours post heart cath. ACTIVITY * Go Home directly and rest. * Limit activity of the leg (or wrist if it was used) for 7 days including aerobics, swimming, jogging, bicycling, etc. * Restrict stair-climbing for 7 days if possible, if not, climb up with your non -cath leg, then bring together on the same step. * Avoid lifting, pushing, pulling or excessive movement of the affected extremity for 7 days. * Customary sexual activity may be resumed after 2 days-use caution not to use a position that strains or causes pain to the affected extremity. * No driving for 24 hours. * NO SMOKING. * Avoid straining for bowel movements for 7 days. * Gentle walking on level ground is allowed. * Returning to work will depend on the type of procedure and the results. Your doctor will discuss this with you. CALL YOUR DOCTOR FOR ANY OF THE FOLLOWING: *If bleeding from the puncture site occurs- Apply gentle pressure to site with clean cloth and call your doctor or EMS. * If a knot or lump forms under the skin, increases in size, or causes pain. * If bruising appears to be worsening or moving further down your leg instead of disappearing. * Temperature above 101 F. CARE OF YOUR GROIN INCISION; * Bruising or purple discoloration of the skin near the puncture site is common. * You may shower only, no bathtub bathing for 5 days. Be careful to avoid slipping as your leg may feel stiff. * If a closure device was used on your femoral artery, please see the attached guide regarding care of the device and your leg. * Leave the dressing on, until removed by office staff. CARE OF YOUR WRIST INCISION; * Bruising or purple discoloration of the skin near the puncture site is common. * You may shower. * DO NOT submerge wrist. * Leave dressing on, until removed by office staff.. Opal ACEVEDO MD Oct 01, 2018 12:46 pm
--- NOTE | 2018-10-01 12:52 | Cardiology Discharge Summary ---
Diagnosis/Chief Complaint Date of Admission 09/30/2018 Date of Discharge 10/01/2018 Admission Diagnosis CAD, shortness of breath, abnormal nuclear stress test Final/Discharge Diagnosis CAD Chief Complaint/HPI Chief Complaint/HPI This is a 83-year-old gentleman with a permanent pacemaker. Significant RV pacing with mild LV systolic dysfunction with mild shortness of breath. Nuclear stress test was abnormal therefore coronary angiography is indicated. Discharge Summary Procedures Coronary angiography revealed mild disease in the LAD. Severe in-stent restenosis in the proximal/mid left circumflex artery stent. Severe disease distally however artery size is 1.5 mm. Severe distal RCA stenosis, however artery diameter is around 1.5 mm. In-stent restenosis was successfully treated with balloon angioplasty with some recoil. Stents were no cross. Therefore no stents were placed. Discharge Physical Examination Stable. Hospital Course Was the Problem List Reviewed?: Yes Unremarkable. Discussion & Recommendations Discussion Discharge instructions discussed at length with the patient and family. The patient family had bunch of questions which were all answered to their satisfaction. There were some questions about insurance, I requested our broadband engineer to discuss with the patient as to what the concerns are. Discharge took over 30 minutes to complete. Patient will continue with Plavix and goal- directed medical therapy. Follow up appt.: Dr Acevedo in October. Dicharge Diet: Cardiac Diet Activity as Tolerated: Yes Home Medications Reviewed patient Home Medication Reconciliation performed by pharmacy medication reconciliations school laboratory technician and/or nursing. Patients Allergies have been reviewed. Discharge Home Medications: Reviewed and agree with Discharge Medication list on patient's Discharge Instruction sheet Condition at discharge Stable Instructions to patient/family Dr Acevedo at previously scheduled appointment. Opal ACEVEDO MD Oct 01, 2018 12:52 pm
[2018-10-01] MEDS ORDERED: METO-333 PO (12:54)
== END 2018-10-01 13:30 | disposition home or self-care (01) ==
LOC: CATH 10:48 → ICU 15:01 → CATH 10-01 13:30
PROVIDERS: ATTEND Internal Medicine Interventional Cardiology
DX: T82.855A Stenosis of coronary artery stent, initial encounter (principal); I25.10 Atherosclerotic heart disease of native coronary artery without angina pectoris; R94.39 Abnormal result of other cardiovascular function study; I11.0 Hypertensive heart disease with heart failure; I50.32 Chronic diastolic (congestive) heart failure; I49.5 Sick sinus syndrome; I07.1 Rheumatic tricuspid insufficiency; E11.9 Type 2 diabetes mellitus without complications; E03.9 Hypothyroidism, unspecified; G47.33 Obstructive sleep apnea (adult) (pediatric); J44.9 Chronic obstructive pulmonary disease, unspecified; Z95.0 Presence of cardiac pacemaker; Z95.5 Presence of coronary angioplasty implant and graft; Z79.02 Long term (current) use of antithrombotics/antiplatelets; Z79.82 Long term (current) use of aspirin; Z79.4 Long term (current) use of insulin; Z79.899 Other long term (current) drug therapy
CPT/HCPCS: 36415; 80048; 80053; 80061; 82962; 85027; 85610; 85730; 87081; 93005; 93458

== ENCOUNTER → 2019-05-24 | Outpatient (CLI) | payer MEDICARE ==
[~2019-05-24] MED LIST changes: +ASPI-983 PO; +ATOR80TA76 PO; -CATHETER FLUSH 10 ML SYR IV PRN; +CLOP75TA69 PO; +FLUT1AER IH; +FLUT1BLS IH; +FURO-124 PO; +INSU100I10 SQ; +INSU100I23 SQ; +LEVO50TA6 PO; +LOSA100T57 PO; +METO-333 PO; +NIFE60TA64 PO; +POTA10CA43 PO; -REGADENOSON 0.4 MG/5 ML SYR (LEXISCAN) IV ONE; +TMSL.4C PO
--- NOTE | 2019-05-24 15:17 | Diagnostic Imaging Report ---
PROCEDURE: CT chest without contrast. TECHNIQUE: Multiple contiguous axial images were obtained through the chest without the use of intravenous contrast. Auto Exposure Controls were utilized during the CT exam to meet ALARA standards for radiation dose reduction. INDICATION: Lung nodule. COMPARISON: Comparison made to prior examination from 04/28/2018. FINDINGS: There is an unchanged 6 mm noncalcified nodule in the right upper lobe. There are no other discrete pulmonary nodules, masses, or infiltrates. There is no pleural or pericardial fluid. There is a small hiatal hernia. The pacemaker is in place. There are coronary artery calcifications. There is no pathologically enlarged adenopathy in the chest. Thoracic aorta is normal in caliber. The visualized intra-abdominal structures are grossly unremarkable. There are degenerative changes in the spine. IMPRESSION: Stable 6 mm pulmonary nodule in the right upper lobe. Recommend additional one-year follow-up to ensure two-year stability. Degenerative changes in the thoracic spine. Coronary artery calcification. Dictated by: Dictated on workstation # [id number]
== END ==
LOC: RAD 05-16 12:02
PROVIDERS: ATTEND Nurse Practitioner Family
DX: J44.9 Chronic obstructive pulmonary disease, unspecified (principal); Z53.8 Procedure and treatment not carried out for other reasons
CPT/HCPCS: 71250

== ENCOUNTER → 2020-01-04 | Outpatient (CLI) | payer MEDICARE ==
[~2020-01-04] MED LIST changes: +NIFE-24 PO; -NIFE60TA64 PO
--- NOTE | 2020-01-04 16:45 | Diagnostic Imaging Report ---
CLINICAL INDICATION: Patient with coronary artery disease. COMPARISON: None. EXAM: Real-time carotid Doppler duplex imaging is performed bilaterally. Peak systolic velocity, ICA/CCA peak systolic ratio, spectral analysis, and vascular morphology are studied. FINDINGS: ARTERY VELOCITY Right Left CCA 0.98 m/s 0.84 m/s ICA 1.32 m/s 1.17 m/s ECA 2.33 m/s 1.46 m/s ICA/CCA 1.3 1.4 VERT.ART Antegrade Antegrade There is bilateral carotid artery atherosclerotic disease (right side more than the left). There are elevated velocities involving the proximal right ECA. IMPRESSION: 1: There are elevated velocities involving the right ECA which may suggest 50-69% stenosis. 2: The remainder of the bilateral carotid arteries show no grayscale or Doppler evidence of significant vascular stenosis. Dictated by: Dictated on workstation # [id number]
== END ==
LOC: RAD 10:49
PROVIDERS: ATTEND Internal Medicine Interventional Cardiology
DX: I65.21 Occlusion and stenosis of right carotid artery (principal); I77.89 Other specified disorders of arteries and arterioles; I42.9 Cardiomyopathy, unspecified; J44.9 Chronic obstructive pulmonary disease, unspecified; I25.10 Atherosclerotic heart disease of native coronary artery without angina pectoris; I10 Essential (primary) hypertension; E78.2 Mixed hyperlipidemia; Z95.0 Presence of cardiac pacemaker
CPT/HCPCS: 93306; 93880

== ENCOUNTER → 2020-06-04 | Outpatient (CLI) | payer MEDICARE ==
[~2020-06-04] MED LIST changes: +ASPI-1238 PO; -ASPI-983 PO; +CATHETER FLUSH 10 ML SYR IV PRN; +HOLD METFORMIN - RECEIVED CONTRAST 20 ML VIAL IV SCH; +IOHEXOL 350 MG/ML 100 ML (OMNIPAQUE 350) VIAL IV ONE; +NS 100 ML (IVPB) BAG IV ONE
[2020-06-04 15:44] LABS: CREATININE SERUM 0.93 MG/DL (0.60-1.30); GFR ESTIMATED > 60
[2020-06-04 15:45] LABS: BUN/CREATININE RATIO 23
--- NOTE | 2020-06-04 16:57 | Diagnostic Imaging Report ---
EXAMINATION: CT Chest with intravenous contrast. TECHNIQUE: Multiple contiguous axial images were obtained through the chest after the uneventful administration of intravenous contrast. All CT scans use one or more of the following dose optimizing techniques: automated exposure control, MA and/or KvP adjustment based on a patient size and exam type, or iterative reconstruction. HISTORY: Lung nodule. COMPARISON: 05/24/2019. FINDINGS: There is no edema or pneumonia. No pleural effusion. No pneumothorax. There is a stable 5 mm right upper lobe pulmonary nodule. Mild atelectasis is present in the lung bases. 2 mm nodule in the left lower lobe is stable. No new nodules are seen. There is no axillary or supraclavicular lymphadenopathy. There is no mediastinal lymphadenopathy. Pacemaker is present. 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 Heart size is normal. There are severe coronary artery calcifications. No pericardial effusion. Aorta is normal in caliber. Limited views of the upper abdomen show changes of cholecystectomy. There are no suspicious osseous lesions. IMPRESSION: 1. Stable right upper lobe nodule, no suspicious nodules. Dictated by: Dictated on workstation # [id number]
== END ==
LOC: RAD 14:55
PROVIDERS: ATTEND Nurse Practitioner Family
DX: J44.9 Chronic obstructive pulmonary disease, unspecified (principal); R91.1 Solitary pulmonary nodule; Z95.0 Presence of cardiac pacemaker
CPT/HCPCS: 36415; 71260; 82565; 84520

== ENCOUNTER → 2020-09-19 | Outpatient (CLI) | payer MEDICARE ==
[~2020-09-19] VITALS: Ht 182 cm; Wt 91.0 kg
[~2020-09-19] MED LIST changes: -HOLD METFORMIN - RECEIVED CONTRAST 20 ML VIAL IV SCH; -IOHEXOL 350 MG/ML 100 ML (OMNIPAQUE 350) VIAL IV ONE; -NS 100 ML (IVPB) BAG IV ONE; +REGADENOSON 0.4 MG/5 ML SYR (LEXISCAN) IV ONE
[2020-09-19 13:14] VITALS: BP 146/49
--- NOTE | 2020-09-19 15:01 | Cardiology Stress Test Report ---
Stress Test Report Date of Procedure/Referring: Date of Procedure: Sep 19, 2020 PCP Lev Aldridge MD Admitting Physician Felix Roberts Indications: Chest pain Baseline Heart Rate: 68 Baseline Blood Pressure: Blood Pressure Systolic: 146 Blood Pressure Diastolic: 49 Baseline Vitals Vital Signs Date Time Temp Pulse Resp B/P (MAP) Pulse Ox O2 Delivery O2 Flow Rate FiO2 09/19/20 13:14 66 146/49 (81) 96 Baseline EKG: Baseline EKG: ventricular paced rhythm Summary After explaining the procedure to the patient, he signed a consent and then brought to the stress nuclear laboratory. Patient received 0.4 mg Lexiscan for stress test, ECG, heart rate and blood pressure were monitored continuously. Resting and stress dose of radio tracer were injected, imaging was acquired and reviewed in short axis, horizontal long axis and vertical long axis views. TID: 1.09 SSS: 21 SDS: 4 EF: 46 1. Patient tolerated Lexiscan well 2. Baseline left ventricular paced rhythm persisted during test 3. Diaphragmatic attenuation with fixed defect involving the whole inferior wall inferior apex inferolateral wall and inferoseptum with no significant rever sibility 4. Prominent left ventricle with hypokinesia at the inferior wall, EF 46 percent LEV ALDRIDGE MD Sep 19, 2020 15:01
== END ==
LOC: CARD 11:00
PROVIDERS: ATTEND Internal Medicine Cardiovascular Disease
DX: I34.0 Nonrheumatic mitral (valve) insufficiency (principal); I10 Essential (primary) hypertension
CPT/HCPCS: 78452; 93017; 93306; A9502